=== PATIENT | male | born 1955 | race Caucasian/White ===

== ENCOUNTER → 2016-12-30 | Outpatient (CLI) | payer OTHER | LOC: RT 14:24 | DX: R55 Syncope and collapse (principal) ==

== ENCOUNTER 2017-03-31 18:33 | Emergency (ER) | payer OTHER ==
[~2017-03-31] VITALS: Ht 177.8 cm; Wt 68.5 kg
--- NOTE | 2017-03-31 18:57 | Emergency Room Report ---
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 N Clinical Suspician of Infection? N Mental Status: 2 - Mildly Altered Sepsis Risk:Possible Sepsis Risk Have you (or family members/close friends) recently traveled outside the [place]? N If Yes, where/when: Have you had exposure to infectious disease within the past month? TB? Other? Specify: Post operative edema acutely today; had RU lobectomy 03/13/17 Dr. Hand, and postoperatively experienced similar edema, which gradually resolved. He states he has pain, but declines offer of pain medications. Reports hx of SIDDHARTHA. 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 He has no fever or SOB; does not take anticoagulants but was on Lovenox in the hospital. He has no cardiac hx. No calf pain or claudication. Last meal was at eleven this morning. Has a hx of KENDALL, and has been r/o for TB (per consultation with Dr. Hand). ALLERGIES Coded Allergies: No Known Allergies (02/04/17) History Medical History General CAD? No Angina: No CA: No Hypertension? No Hyperlipidemia? No CHF? No DVT? No PE? No COPD? No Asthma? No Anemia? No GERD? No Gastric ulcers? No GI Bleed? No Hernia? No Thyroid Problems? No Hypothyroidism? No CVA? No Seizures? No Diabetes? No Renal Insuffiency? No End Stage Renal Disease? No UTI? No Stones? No BPH? No GB Disease: No Nephritic Syndrome? No Asplenia? No Hepatitis? No Sickle Cell Disease? No Arthritis? No Migraines? No Cataracts? No Glaucoma? No MRSA? No HIV? No TB? No Anxiety? No Depression? No Cancer? No More? Yes Additional hx: MAC LUNG DISEASE Immunization Hx DT/Tetanus Unknown Surgical Hx Previous Surgery?Y BILATERAL KNEE UMBILICAL HERNIA RIGHT UPPER LOBECTOMY Social History Smoking Hx Smoker: Former Smoker Tobacco: No Packs/day 1 1/2 - 2 Packs Alcohol Alcohol: No Review of Systems All Other Systems Reviewed and Negative Respiratory see HPI Physical Exam Vital Signs Vital Signs Date Time Temp Pulse Resp B/P Pulse O2 O2 Flow FiO2 Ox Delivery Rate 03/31 1916 126 20 92/65 98 2 03/31 1839 98.9 100 20 126/73 98 2 General Appearance normal appearance, WD/WN, no apparent distress Eye Exam - bilateral eye normal exam, bilateral eye PERRL, bilateral eye EOMI Neck normal inspection, non-tender, supple, full range of motion Respiratory Status Yes: trachea midline, chest symmetrical, non tender chest. No: respiratory distress (mild edema around dressing), tender on palpation, use of accessory muscles, pain on inspiration, pain on expiration, productive cough, non productive cough. Lung Sounds bilateral: normal breath sounds (significant edema posteriorlyR), lungs clear. right: decreased breath sounds. Cardiovascular normal exam, regular rate/rhythm, no peripheral edema, no gallop, no JVD, no murmur, no rub, normal peripheral pulses Gastrointestinal normal bowel sounds, normal exam, non tender, soft, no organomegaly, no pulsatile mass, no guarding, no rebound Extremities non-tender, normal range of motion, normal inspection, normal capillary refill, no pedal edema Strength 5 Upper Ext (L), 5 Upper Ext (R), 5 Lower Ext (L), 5 Lower Ext (R) Neurologic alert, normal exam, no motor/sensory deficits, oriented x 3 Glascow Coma Scale Glascow Coma Scale Response Value EYE response: 4 Spontaneously 4 MOTOR response: 6 OBEYS 6 VERBAL response: 5 Oriented & Converses 5 Total 15 Skin mild edema around operative site with sutures to right anterior chest in place; no erythema or drainage. No DINA. Medical Decision Making LABS/Meds/Orders Pt receiving controlled substance in ED? No Results/Orders Laboratory Tests 03/31/171926: Stool Occult Blood NEGATIVE 03/31/171900: POC Glucose 114 H 03/31/171834: Lactic Acid 1.6 03/31/171834: Sodium 134 L, Potassium 5.3 H, Chloride 102, Carbon Dioxide 27, BUN 20 H, Creatinine 1.2, Estimated Creat Clear 61, Estimated GFR (MDRD) 61, Glucose 153 H, Calcium 8.9, Total Bilirubin 0.3, AST 13 L, ALT 25, Alkaline Phosphatase 104 , Creatine Kinase 41, CK-MB (CK-2) Rel Index 1.2, CK and CKMB Interp < 0.5, Troponin I < 0.02, Total Protein 7.2, Albumin 2.8 L, Globulin 4.4 H, Albumin/ Globulin Ratio 0.6 L, WBC 23.7 *H, RBC 3.82 L, Hgb 11.5 L, Hct 35.4 L, MCV 92.7, RDW 13.5, Plt Count 664 H, MPV 7.5, Gran % 79.7, Gran # 18.9 H, Total Counted Pending, Lymphocytes % 13.0, Monocytes % 4.5, Eosinophils % 2.2, Basophils % 0.5, Neutrophils Pending, Lymphocytes (Manual) Pending, Lymphocytes # 3.1, Monocytes # 1.1 H, Eosinophils # 0.5 H, Basophils # 0.1, Platelet Estimate Pending, PUBS MCHC 32.3, MCH 30.0 Current Medication Orders Sig/Campbell Start time Last Medication Dose Route Stop Time Status Admin Sodium Chloride 10 ML PRN PRN 03/31 193 AC IV 04/01 1927 Levofloxacin/Dextrose 150 ML .STK-MED ONE 03/31 1922 DC IV Lactated Ringer's 1,000 ML .Q1H1M 03/31 1915 AC 03/31 IV 03/31 2015 192 Levofloxacin/Dextrose 150 ML ONCE ONE 03/31 1915 r 03/31 IV 03/31 2044 192 Sodium Chloride 1,000 ML .[id number] 03/31 1915 CAN IV 03/31 2314 Sodium Chloride 10 ML PRN PRN 03/31 1915 AC IV 04/01 1906 Sodium Chloride 10 ML PRN PRN 03/31 1915 AC IV 04/01 1908 Sodium Chloride 10 ML PRN PRN 03/31 1915 AC IV 04/01 1909 Sodium Chloride 1,000 ML .STK-MED ONE 03/31 1912 DC IV Lactated Ringer's 1,000 ML .STK-MED ONE 03/31 1908 DC IV Orders Procedure Date/time Status DIET-NOTHING BY MOUTH 04/01 B Active IV SALINE LOCK 03/31 1927 Active STOOL OCCULT BLOOD 03/31 1915 Complete IV SALINE LOCK 03/31 1910 Active CULTURE, BLOOD 03/31 1909 Active LACTIC ACID 03/[address] HEAD REQ 03/31 1906 Active ELECTROCARDIOGRAM REQUEST 03/31 1904 Active FINGERSTICK BLOOD SUGAR 03/[address] CHEST W/O CONTRAST 03/[address] CHEST SCAN REQ 03/31 1851 Active ELECTROCARDIOGRAM REQUEST 03/31 1839 Active CHEST-PORTABLE 03/31 1839 Active COMPLETE METABOLIC PANEL 03/31 1839 Complete CBC WITH AUTO DIFF 03/31 1839 Active CARDIAC ENZYMES 03/31 1839 Complete DIFFERENTIAL-WBC 03/31 1835 Active CM/EKG CM/EKG 1 EKG rate, NSR, rhythm, no evid. of ischemic chgs, no ectopy, normal QRS, normal CA, normal EKG (NSR 93) CM/EKG 2 EKG rate, NSR, rhythm, no evid. of ischemic chgs, no ectopy, normal QRS, normal CA, normal EKG (EKG number 2 no change; NSR94) Consult MD Physician Consult Time Called 1933 Reason Pt. Condition, Transfer to facility Comments Dr. Hand accepting;transfer to ED. Patient alert, SBP in the low 100's; neurologically intact. He is afebrile. Dr. Hand reports hx KENDALL, states edema more c/w postoperative seroma but with hypotension and elevated CBC agrees with transfer. CT scan held due to immediate transfer and orthostatic hypotension. ABX initiated has 2IV's with LR bolused. Pulmonary Embolism Score WELL'S CRITERIA FOR PE WELL'S CRITERIA FOR PE Response Value Clinical signs/symptoms of DVT NO 0 PE is #1 diagnosis or equally likely NO 0 Heart rate is > 100 NO 0 Immobile at least 3 days, or surgery in past 4 wks NO 0 Previously, obj. diagnosed PE or DVT NO 0 Hemoptysis NO 0 Malignancy w/Rx within 6mo, or palliative NO 0 Total 0 Progress ED Progress Notes 1 Date 03/31/17 Time 190 Comment Patient brought back from [facility] by radiology techs as he had an episode of change in mental status, eyes rolled back, and he was "out" with rigid limbs. This lasted about ten seconds and he is now alert. He was in a wheelchair at the time. FSBS 114 and he was in STach on the monitor, and had been from supine to sitting position just moments prior to this event. Will give IVF and keep on monitor. He is neurologically intact currently and no chest pain or SOB. He is pale. ED Progress Notes 2 Date 03/31/17 Time 191 Comment Patient sat up and had hypotensive episode with SBP in the 60's; placed supine and SBP in the 90's; LR initiated due to 23.7 WBC. Will obtain CXR and consult [facility] for transfer. Patient alert. HR 94 now. ED Progress Notes 3 Date 03/31/17 Time 1950 Comment [facility] called back w/ room assignment; instructed to transfer to that bed and not the ED; this information was given to EMS prior to transfer. Departure Departure Time of Disposition 1932 Disposition DC/XFER from ER to [facility] Clinical Impression Primary Impression: Sepsis Qualifiers: Sepsis type: sepsis due to unspecified organism Qualified Code: A41.9 - Sepsis, unspecified organism Secondary Impressions: Postoperative seroma Qualifiers: Surgical complication system/body Area: respiratory system Procedure type: respiratory system Qualified Code: J95.862 - Postprocedural seroma of a respiratory system organ or structure following a respiratory system procedure Condition STABLE ED Critical Care Critical Care Yes Time spent < 30 min Vital system(s) involved: Shock (Septic) I was present at bedside for Coordinating pt's care, Interpreting EKGs/Strips , During my initial exam, Reviewing lab results, Discussing pt condition, For re -examinations, Examining radiographs at 1952
[2017-03-31 19:04] LABS: LYMPH # 3.1 K/mm3 (0.7-4.5)
[2017-03-31 19:10] LABS: HEMOGLOBIN 11.5 g/dL (14.1-18.0)
[2017-03-31 19:24] LABS: BUN 20 mg/dL (7-18); GFR (ESTIMATED) 61 ML/MIN (>60)
[2017-03-31 19:32] LABS: STOOL OCCULT BLOOD NEGATIVE (NEG)
[2017-03-31 20:05] LABS: NEUTROPHILS 90 % (42-76)
[2017-03-31 20:16] VITALS: BP 117/64
--- NOTE | 2017-03-31 23:44 | RADIOLOGY REPORT PS360 ---
CHEST-PORTABLE HISTORY: POSSIBLE PNEUMO ORDERING PHYSICIAN: Christie Mayo MD PATIENT AGE: 61 years COMPARISON: None available FINDINGS: There are no previous studies available for comparison. There are postsurgical changes present with multiple skin clips along the right hemithorax. A bone plate is present over the right fifth rib laterally and the right sixth rib posteriorly with missing segment of the medial aspect of the right sixth rib. There is prominent right apical pleural thickening. Soft tissue gas is present overlying the right scapular region. Mediastinum is prominent. Right hilum is prominent with volume loss on the right and sutures in the right perihilar region and right lower lobe with atelectasis or fibrosis in the right lung base. Correlation with old films are needed. The left lung is clear. IMPRESSION: Abnormal chest with postsurgical changes as described above, right apical pleural thickening and prominent mediastinum and right hilum along with atelectatic or fibrotic change in the right lung base and soft tissue gas overlying the right scapula. Correlation with old films needed.
--- OUTSIDE RECORDS SUMMARY | 2017-04-04 06:58 | External Medical Summary Rpt | CCD ---
Demographics Home Phone Preferred Language Bulgarian Marital Status Unknown Gnosticism Affiliation Unknown Race Unknown Ethnic Group Unknown Author Author , RADHA GARCIA Address Unknown Phone [email or web address] Immunization Name Date Rout CVX Reac Dose Comm Prov Is Faci e tion ent ider Refu lity Give sed n Tdap 07-1 Intr 115 999 Hist EWA No EWA , 6-20 amus oric LO LO Adso 16 cula al rbed r Info rmat ion - Sour ce Unsp ecif ied
--- OUTSIDE RECORDS SUMMARY | 2017-04-04 06:58 | External Medical Summary Rpt | CCD ---
Author Author , RADHA GARCIA Address Unknown Phone [email or web address] Purpose Continuity of Care Document - 03-19-2017 through 2016 Problems Code Diagnosis DOS Provider Status A31.0 Pulmonary mycobacteri al infection A31.9 Mycobacteri al infection, unspecified D72.829 Elevated white blood cell count, unspecified F17.210 Nicotine dependence, cigarettes, uncomplicat ed J18.1 Lobar pneumonia, unspecified organism J18.9 Pneumonia, unspecified organism J43.2 Centrilobul ar emphysema J69.0 Pneumonitis due to inhalation of food and vomit R05 Cough R06.02 Shortness of breath R59.0 Localized enlarged lymph nodes R61 Generalized hyperhidros is R63.4 Abnormal weight loss R91.1 Solitary pulmonary nodule R91.8 Other nonspecific abnormal finding of lung field R93.8 Abnormal findings on diagnostic imaging of other specified body structures Results Labs Lab Lab Date Result Refere Interp Status Commen Order Detail nces retati t Range on Phosphate SerPl-mCnc (03-27-2017 03:14) Phospha 4.2 2.5-4.5 complet te 017 mg/dL ed SerPl-m 03:14 Cnc Magnesium SerPl-mCnc (03-27-2017 03:14) Magnesi 2 2.4 1.9-2.4 complet um 017 mg/dL ed SerPl-m 03:14 Cnc Phosphate SerPl-mCnc (03-26-2017 03:43) Phospha 4.5 2.5-4.5 complet te 017 mg/dL ed SerPl-m 03:43 Cnc Magnesium SerPl-mCnc (03-26-2017 03:43) Magnesi 2.2 1.9-2.4 complet um 017 mg/dL ed SerPl-m 03:43 Cnc Ca-I SerPl ISE-sCnc (03-26-2017 03:43) Ca-I 1005-2 4.7 4.6-5.1 complet SerPl 017 mg/dL ed ISE-sCn 03:43 c Phosphate SerPl-mCnc (03-25-2017 00:49) Phospha 4.0 2.5-4.5 complet te 017 mg/dL ed SerPl-m 00:49 Cnc Magnesium SerPl-mCnc (03-25-2017 00:49) Magnesi 2.1 1.9-2.4 complet um 017 mg/dL ed SerPl-m 00:49 Cnc Ca-I SerPl ISE-sCnc (03-25-2017 00:49) Ca-I 4.4 4.6-5.1 complet SerPl 017 mg/dL ed ISE-sCn 00:49 c Phosphate SerPl-mCnc (03-24-2017 03:16) Phospha TCON 2.5-4.5 complet te 017 Multipl ed SerPl-m 03:16 e SCM Cnc orders. Tests consoli dated. L mg/dL Magnesium SerPl-mCnc (03-24-2017 03:16) Magnesi TCON 1.9-2.4 complet um 017 Multipl ed SerPl-m 03:16 e SCM Cnc orders. Tests consoli dated. L mg/dL Vancomycin SerPl-mCnc (03-24-2017 03:16) Vancomy 20.5 0-40.0 complet korin 017 ug/mL ed SerPl-m 03:16 Cnc Phosphate SerPl-mCnc (03-24-2017 03:16) Phospha 4.0 2.5-4.5 complet te 017 mg/dL ed SerPl-m 03:16 Cnc Magnesium SerPl-mCnc (03-24-2017 03:16) Magnesi 2.2 1.9-2.4 complet um 017 mg/dL ed SerPl-m 03:16 Cnc Ca-I SerPl ISE-sCnc (03-24-2017 03:16) Ca-I 4.6 4.6-5.1 complet SerPl 017 mg/dL ed ISE-sCn 03:16 c Vancomycin SerPl-mCnc (03-23-2017 23:23) Vancomy 11.5 0-40.0 complet korin 017 ug/mL ed SerPl-m 23:23 Cnc MDRO Wnd (03-23-2017 22:17) Bacteri [id number] complet a XXX 017 06 No ed Anaerob 22:17 growth e+Aerob (qualif e Cult ier value) SCT NG1 NO GROWTH DAY 1. L CC XXX NOTAP complet VC-aCnc 017 NOT ed 22:17 APPLICA BLE L Phosphate SerPl-mCnc (03-23-2017 02:10) Phospha 3.1 2.5-4.5 complet te 017 mg/dL ed SerPl-m 02:10 Cnc Ca-I SerPl ISE-sCnc (03-23-2017 02:10) Ca-I 4.7 4.6-5.1 complet SerPl 017 mg/dL ed ISE-sCn 02:10 c Magnesium SerPl-mCnc (03-23-2017 02:10) Magnesi 2.1 1.9-2.4 complet um 017 mg/dL ed SerPl-m 02:10 Cnc Phosphate SerPl-mCnc (03-22-2017 03:34) Phospha 2.3 2.5-4.5 complet te 017 mg/dL ed SerPl-m 03:34 Cnc Magnesium SerPl-mCnc (03-22-2017 03:34) Magnesi 2.1 1.9-2.4 complet um 017 mg/dL ed SerPl-m 03:34 Cnc Bacteria XXX Resp Cult (03-21-2017 17:02) Bacteri C48 ... complet a XXX 017 IF ed Anaerob 17:02 WORKUP e+Aerob REQUIRE e Cult D, CALL BACT ([id number]) WITHIN 48 HRS. L Bacteri [id number] complet a XXX 017 8 Gram ed Anaerob 17:02 negativ e+Aerob e e Cult bacillu s (organi sm) SCT GNR GRAM NEGATIV E SAYDA L CC XXX MGRO complet VC-aCnc 017 MODERAT ed 17:02 E GROWTH L Magnesium SerPl-mCnc (03-21-2017 02:12) Magnesi 2.1 1.9-2.4 complet um 017 mg/dL ed SerPl-m 02:12 Cnc Phosphate SerPl-mCnc (03-21-2017 02:12) Phospha 1.8 2.5-4.5 complet te 017 mg/dL ed SerPl-m 02:12 Cnc Phosphate SerPl-mCnc (03-20-2017 02:24) Phospha 2.8 2.5-4.5 complet te 017 mg/dL ed SerPl-m 02:24 Cnc Magnesium SerPl-mCnc (03-20-2017 02:24) Magnesi 2.0 1.9-2.4 complet um 017 mg/dL ed SerPl-m 02:24 Cnc MDRO Wnd (03-19-2017 15:35) Bacteri [id number] complet a XXX 017 06 No ed Anaerob 15:35 growth e+Aerob (qualif e Cult ier value) SCT NG1 NO GROWTH DAY 1. L CC XXX NOTAP complet VC-aCnc 017 NOT ed 15:35 APPLICA BLE L Phosphate SerPl-mCnc (03-19-2017 14:09) Phospha 4.3 2.5-4.5 complet te 017 mg/dL ed SerPl-m 14:09 Cnc Magnesium SerPl-mCnc (03-19-2017 14:09) Magnesi 2.0 1.9-2.4 complet um 017 mg/dL ed SerPl-m 14:09 Cnc Chloride Bld-sCnc (03-19-2017 11:38) Chlorid 109 101-108 complet e 017 mmol/L ed Bld-sCn 11:38 c Bacteria Wnd Cult (03-19-2017 11:11) Bacteri [id number] complet a XXX 017 06 No ed Anaerob 11:11 growth e+Aerob (qualif e Cult ier value) SCT NG4 NO GROWTH DAY 4. L CC XXX NOTAP complet VC-aCnc 017 NOT ed 11:11 APPLICA BLE L Bacteria XXX Anaerobe Cult (03-19-2017 11:11) Bacteri [id number] complet a XXX 017 06 No ed Anaerob 11:11 growth e+Aerob (qualif e Cult ier value) SCT NG4 NO GROWTH DAY 4. L Bacteria XXX Anaerobe Cult (03-19-2017 10:56) Bacteri [id number] complet a XXX 017 06 No ed Anaerob 10:56 growth e+Aerob (qualif e Cult ier value) SCT NG4 NO GROWTH DAY 4. L Bacteria Tiss Cult (03-19-2017 10:56) Bacteri [id number] complet a XXX 017 06 No ed Anaerob 10:56 growth e+Aerob (qualif e Cult ier value) SCT NG4 NO GROWTH DAY 4. L CC XXX NOTAP complet VC-aCnc 017 NOT ed 10:56 APPLICA BLE L Bacteria XXX Anaerobe Cult (03-19-2017 09:58) Bacteri 2 C48 ... complet a XXX 017 IF ed Anaerob 09:58 WORKUP e+Aerob REQUIRE e Cult D, CALL BACT ([id number]) WITHIN 48 HRS. L Bacteri [id number] complet a XXX 017 08 ed Anaerob 09:58 Staphyl e+Aerob ococcus e Cult , coagula se negativ e (organi sm) SCT SCN COAGULA SE NEGATIV E STAPHYL OCOCCUS SPECIES L Bacteria Tiss Cult (03-19-2017 09:58) Bacteri [id number] complet a XXX 017 06 No ed Anaerob 09:58 growth e+Aerob (qualif e Cult ier value) SCT NG4 NO GROWTH DAY 4. L CC XXX NOTAP complet VC-aCnc 017 NOT ed 09:58 APPLICA BLE L Chloride Bld-sCnc (03-19-2017 09:10) Chlorid 110 101-108 complet e 017 mmol/L ed Bld-sCn 09:10 c
--- OUTSIDE RECORDS SUMMARY | 2017-04-04 06:58 | External Medical Summary Rpt | CCD ---
Author Author [employer] Organization [employer] Address Unknown Phone Unavailable Purpose Continuity of Care Document - through 2016
--- OUTSIDE RECORDS SUMMARY | 2017-04-04 06:58 | External Medical Summary Rpt ---
Author Author RADHA Dela Cruz, [employer] Organization [employer] Address Unknown Phone Unavailable
--- OUTSIDE RECORDS SUMMARY | 2017-04-04 06:58 | External Medical Summary Rpt | CCD ---
Author Author , RADHA GARCIA Address Unknown Phone [email or web address] Purpose Continuity of Care Document - 03-19-2017 [...] 23:23 Cnc MDRO Wnd (03-23-2017 22:17) Bacteri [id number] complet a XXX 017 06 No ed [...] e+Aerob REQUIRE e Cult D, CALL BACT ([id number]) WITHIN 48 HRS. L Bacteri [id number] complet a XXX 017 8 Gram ed [...] 02:24 Cnc MDRO Wnd (03-19-2017 15:35) Bacteri [id number] complet a XXX 017 06 No ed [...] c Bacteria Wnd Cult (03-19-2017 11:11) Bacteri [id number] complet a XXX 017 06 No ed Anaerob 11:11 growth e+Aerob (qualif e Cult ier value) SCT NG4 NO GROWTH DAY 4. L CC XXX NOTAP complet VC-aCnc 017 NOT ed 11:11 APPLICA BLE L Bacteria XXX Anaerobe Cult (03-19-2017 11:11) Bacteri [id number] complet a XXX 017 06 No ed Anaerob 11:11 growth e+Aerob (qualif e Cult ier value) SCT NG4 NO GROWTH DAY 4. L Bacteria XXX Anaerobe Cult (03-19-2017 10:56) Bacteri [id number] complet a XXX 017 06 No ed Anaerob 10:56 growth e+Aerob (qualif e Cult ier value) SCT NG4 NO GROWTH DAY 4. L Bacteria Tiss Cult (03-19-2017 10:56) Bacteri [id number] complet a XXX 017 06 No ed Anaerob 10:56 growth e+Aerob (qualif e Cult ier value) SCT NG4 NO GROWTH DAY 4. L CC XXX NOTAP complet VC-aCnc 017 NOT ed 10:56 APPLICA BLE L Bacteria XXX Anaerobe Cult (03-19-2017 09:58) Bacteri 2 C48 ... complet a XXX 017 IF ed Anaerob 09:58 WORKUP e+Aerob REQUIRE e Cult D, CALL BACT ([id number]) WITHIN 48 HRS. L Bacteri [id number] complet a XXX 017 08 ed Anaerob 09:58 Staphyl e+Aerob ococcus e Cult , coagula se negativ e (organi sm) SCT SCN COAGULA SE NEGATIV E STAPHYL OCOCCUS SPECIES L Bacteria Tiss Cult (03-19-2017 09:58) Bacteri [id number] complet a XXX 017 06 No ed Anaerob 09:58 growth e+Aerob (qualif e Cult ier value) SCT NG4 NO GROWTH DAY 4. L CC XXX NOTAP complet VC-aCnc 017 NOT ed 09:58 APPLICA BLE L Chloride Bld-sCnc (03-19-2017 09:10) Chlorid 110 101-108 complet e 017 mmol/L ed Bld-sCn 09:10 c
--- OUTSIDE RECORDS SUMMARY | 2017-04-04 06:58 | External Medical Summary Rpt | CCD ---
Demographics Home Phone Preferred Language Mongolian Marital Status Unknown Jehovah'S Witness Affiliation Unknown Race Unknown Ethnic Group Unknown Author Author , RADHA GARCIA Address Unknown Phone [email or web address] Immunization Name Date Rout CVX Reac Dose Comm Prov Is Faci e tion ent ider Refu lity Give sed n Tdap 07-1 Intr 115 999 Hist EWA No EWA , 6-20 amus oric LO LO Adso 16 cula al rbed r Info rmat ion - Sour ce Unsp ecif ied
== END 2017-03-31 20:18 | disposition short-term general hospital (02) ==
LOC: ER 18:33
PROVIDERS: Emergency Medicine
DX: A41.9 Sepsis, unspecified organism (principal); J95.862 Postprocedural seroma of a respiratory system organ or structure following a respiratory system procedure; Z87.891 Personal history of nicotine dependence; I95.9 Hypotension, unspecified
CPT/HCPCS: G0328

== ENCOUNTER 2017-05-26 15:18 | Observation (INO) | payer OTHER ==
[~2017-05-26] VITALS: Ht 177.8 cm; Wt 71.9 kg
[2017-05-26 15:21] VITALS: BP 189/98
--- NOTE | 2017-05-26 15:30 | Emergency Room Report ---
See Addendum History of Present Illness Time Seen by 1530 Presenting Problem in Triage Pt arrived:Walked Presenting Problem:PAIN IN RIGHT SIDE OF CHEST, PLUERAL AREA. INCREASED WORK OF BREATHING. HX OF PULMECTOMY ON RIGHT SIDE. 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 N Clinical Suspician of Infection? N Mental Status: 1 - Regular (Normal Baseline) Sepsis Risk:Low Sepsis Risk Have you (or family members/close friends) recently traveled outside the [place]? N If Yes, where/when: Have you had exposure to infectious disease within the past month? TB? Other? Specify: Pleuritic chest pain and night sweats over the last few days, pt of Dr. Wong, pulmonology, due to histo in the past with RULobectomy. Has no cardiac hx, quit smoking in February,. No calf pain, no sputum, no flu sx, no fever, no chills. No palpitations or syncope. No hemoptysis. ALLERGIES Coded Allergies: No Known Allergies (02/04/17) History Medical History General CAD? No Angina: No GA: No Hypertension? No Hyperlipidemia? No CHF? No DVT? No PE? No COPD? No Asthma? No Anemia? No GERD? No Gastric ulcers? No GI Bleed? No Hernia? No Thyroid Problems? No Hypothyroidism? No CVA? No Seizures? No Diabetes? No Renal Insuffiency? No End Stage Renal Disease? No UTI? No Stones? No BPH? No GB Disease: No Nephritic Syndrome? No Asplenia? No Hepatitis? No Sickle Cell Disease? No Arthritis? No Migraines? No Cataracts? No Glaucoma? No MRSA? No HIV? No TB? No Anxiety? No Depression? No Cancer? No More? Yes Additional hx: MAC LUNG DISEASE Immunization Hx DT/Tetanus Unknown Surgical Hx Previous Surgery?Y BILATERAL KNEE UMBILICAL HERNIA RIGHT UPPER LOBECTOMY Social History Smoking Hx Smoker: Former Smoker Tobacco: No Type Cigarettes Packs/day 1 1/2 - 2 Packs Alcohol Alcohol: No Review of Systems All Other Systems Reviewed and Negative Constitutional see HPI Respiratory see HPI Cardiovascular see HPI Physical Exam Vital Signs Vital Signs Date Time Temp Pulse Resp B/P Pulse O2 O2 Flow FiO2 Ox Delivery Rate 05/26 1652 68 16 157/97 96 05/26 1521 98.4 68 20 189/98 96 General Appearance normal appearance, WD/WN, no apparent distress Eye Exam - bilateral eye normal exam, bilateral eye PERRL, bilateral eye EOMI Neck normal inspection, non-tender, supple, full range of motion Respiratory Status Yes: trachea midline, chest symmetrical, non tender chest. No: respiratory distress, tender on palpation, use of accessory muscles, pain on inspiration, pain on expiration, productive cough, non productive cough. Lung Sounds bilateral: normal breath sounds, lungs clear. right: decreased breath sounds ( hx lobectomy on R). Cardiovascular normal exam, regular rate/rhythm, no peripheral edema, no gallop, no JVD, no murmur, no rub, normal peripheral pulses Gastrointestinal normal bowel sounds, normal exam, non tender, soft, no organomegaly, no pulsatile mass, no guarding, no rebound Extremities non-tender, normal range of motion, normal inspection, normal capillary refill, no calf tenderness, no pedal edema Strength 5 Upper Ext (L), 5 Upper Ext (R), 5 Lower Ext (L), 5 Lower Ext (R) Neurologic alert, normal exam, no motor/sensory deficits, oriented x 3 Glascow Coma Scale Glascow Coma Scale Response Value EYE response: 4 Spontaneously 4 MOTOR response: 6 OBEYS 6 VERBAL response: 5 Oriented & Converses 5 Total 15 Skin intact, normal color, warm/dry Medical Decision Making LABS/Meds/Orders Pt receiving controlled substance in ED? No Results/Orders Laboratory Tests 05/26/17 1615: Lactic Acid 0.9 05/26/17 1530: Sodium 144, Potassium 4.0, Chloride 108 H, Carbon Dioxide 30, BUN 16, Creatinine 1.1, Estimated Creat Clear 73, Estimated GFR (MDRD) 68, Glucose 112 H, Calcium 8.8, Total Bilirubin 0.1 L, AST 13 L, ALT 13, Alkaline Phosphatase 69, Creatine Kinase 66, CK-MB (CK-2) Rel Index 0.8, CK and CKMB Interp < 0.5, Troponin I < 0.02, Total Protein 7.1, Albumin 3.3 L, Globulin 3.8 H, Albumin/ Globulin Ratio 0.9 L, WBC 7.9, RBC 4.05 L, Hgb 11.9 L, Hct 37.2 L, MCV 91.8, RDW 13.6, Plt Count 300, MPV 7.5, Gran % 63.0, Gran # 5.0, Lymphocytes % 24.3, Monocytes % 7.3, Eosinophils % 4.7, Basophils % 0.7, Lymphocytes # 1.9, Monocytes # 0.6, Eosinophils # 0.4, Basophils # 0.1, PUBS MCHC 31.9, MCH 29.3 Current Medication Orders Sig/Campbell Start time Last Medication Dose Route Stop Time Status Admin Iopamidol 60 ML ONCE ONE 05/26 1645 UNV 05/26 IV 05/26 1646 1635 Sodium Chloride 20 ML ONCE ONE 05/26 1645 UNV 05/26 IV 05/26 1646 1635 Sodium Chloride 20 ML ONCE ONE 05/26 1645 UNV 05/26 IV 05/26 1646 1636 Sodium Chloride 10 ML PRN PRN 05/26 1645 UNV 05/26 IV 05/26 1806 1637 Sodium Chloride 10 ML PRN PRN 05/26 1530 AC IV 05/27 1530 Orders Procedure Date/time Status DIET-NOTHING BY MOUTH 05/26 D Active CULTURE, BLOOD 05/26 1613 Active LACTIC ACID 05/26 1613 Complete ELECTROCARDIOGRAM REQUEST 05/[address] CHEST W/PE PROTOCOL REQ 05/26 1530 Complete IV SALINE LOCK 05/26 1530 Active CBC WITH AUTO DIFF 05/26 1530 Complete CARDIAC ENZYMES 05/26 1530 Complete CHEM 12 PROFILE 05/26 1530 Complete 12 LEAD EKG-BELLA (INITIAL) 05/26 UNK Active CM/EKG CM/EKG EKG rate, NSR, rhythm, no evid. of ischemic chgs, no ectopy, normal QRS, normal MO, normal EKG (NSR 63) XRAY/CT/US XRAY/CT/US CT chest CT interpretation by reviewed by me (report reviewed) Time results known: 1729 CT Results abnormal, soft tissue density and fluid, cannot r/o neoplasm per report; results d/w pt and referred to his finish filer Progress ED Progress Notes Date 05/26/17 Time 1730 Comment No PE on CT but has possibility of neoplasm: will f/u with his finish filer next week and already has an appointment; he may also f/u with his PCP in the meantime. He has no discomfort, does not need anything for pain, is not in any resp distress and is stable at d/c. Departure Departure Time of Disposition 1730 Disposition DC Home or Self Care(routine) Clinical Impression Primary Impression: Pleuritic chest pain Secondary Impressions: Abnormal CT scan, chest Condition STABLE Referrals MADELYN FENG APRN (Family) Patient Instructions DI for Pleurisy Additional Instructions See Dr. Wong next week for your scheduled appointment; see your PCP Madelyn in one to three days as well; go to closest ER if any concerns or worsening symptoms. Discharge Counseling Counseled pt/family regarding diagnosis, test results, R/B of controlled subst., home care, follow up needs ED Critical Care Critical Care No at [id number]
[2017-05-26 15:43] LABS: HEMOGLOBIN 11.9 g/dL (14.1-18.0); LYMPH # 1.9 K/mm3 (0.7-4.5); LYMPH % 24.3 % (10-50)
--- OUTSIDE RECORDS SUMMARY | 2017-05-26 15:51 | External Medical Summary Rpt | Continuity of Care Document ---
Author Author Organization Address Unknown Phone Unavailable Care Team Providers Care Dye Boarding Machine Operator Name Role Phone , Unavailable Unavailable EMS Current Medications Section EMS Allergies and Adverse Reactions EMS Past Medical History Medications Administered Section EMS Procedures Performed EMS Vital Signs EMS Patient Care Report Narrative 62 y/o w/m who had upper R lobe of lung removed by [facility] 9 days prior just released 4 days ago now with severe pain R upper chest and posterior thorax with tightness in that area. Pt states this tightness makes it difficult to breath and makes his R arm tingle. Upon exam pt with obvious free air in upper chest with swelling and tightness. Pt request to go to but after discussion agrees to [facility]. Pt assisted to cot. Once en route pain decreased with repeat dose of fentanyl. No other changes. Pt states tolerating pain and requires no further intervention. Pt not SOB and v/s WNL. Report called 30 mcg fentanyl wasted with Dominga RN as witness.
--- OUTSIDE RECORDS SUMMARY | 2017-05-26 15:51 | External Medical Summary Rpt | Continuity of Care Document ---
Author Author Organization Address Unknown Phone Unavailable Care Team Providers Care Mill Tender Second Operator Name Role Phone , Unavailable Unavailable [...] go to but after discussion agrees to [facility]. Pt assisted to cot. Once en route pain decreased with repeat dose of fentanyl. No other changes. Pt states tolerating pain and requires no further intervention. Pt not SOB and v/s WNL. Report called 30 mcg fentanyl wasted with Dominga RN as witness.
--- OUTSIDE RECORDS SUMMARY | 2017-05-26 15:51 | External Medical Summary Rpt | Continuity of Care Document ---
Author Author Organization Address Unknown Phone Unavailable Care Team Providers Care Fire Protection Specialist Name Role Phone , Unavailable Unavailable EMS [...] go to but after discussion agrees to [facility]. Pt assisted to cot. Once en route pain decreased with repeat dose of fentanyl. No other changes. Pt states tolerating pain and requires no further intervention. Pt not SOB and v/s WNL. Report called 30 mcg fentanyl wasted with Dominga RN as witness.
--- OUTSIDE RECORDS SUMMARY | 2017-05-26 15:51 | External Medical Summary Rpt | Continuity of Care Document ---
Author Author Organization Address Unknown Phone Unavailable Care Team Providers Care Compliance Testing Analyst Name Role Phone , Unavailable Unavailable EMS [...] go to but after discussion agrees to [facility]. Pt assisted to cot. Once en route pain decreased with repeat dose of fentanyl. No other changes. Pt states tolerating pain and requires no further intervention. Pt not SOB and v/s WNL. Report called 30 mcg fentanyl wasted with Dominga RN as witness.
--- OUTSIDE RECORDS SUMMARY | 2017-05-26 15:51 | External Medical Summary Rpt | Continuity of Care Document ---
Author Author Organization Address Unknown Phone Unavailable Care Team Providers Care Electrical Engineering Teacher Name Role Phone , Unavailable Unavailable EMS [...] go to but after discussion agrees to [facility]. Pt assisted to cot. Once en route pain decreased with repeat dose of fentanyl. No other changes. Pt states tolerating pain and requires no further intervention. Pt not SOB and v/s WNL. Report called 30 mcg fentanyl wasted with Dominga RN as witness.
--- OUTSIDE RECORDS SUMMARY | 2017-05-26 15:51 | External Medical Summary Rpt | Continuity of Care Document ---
Author Author Organization Address Unknown Phone Unavailable Care Team Providers Care Social Worker Aide Name Role Phone , Unavailable Unavailable EMS [...] go to but after discussion agrees to [facility]. Pt assisted to cot. Once en route pain decreased with repeat dose of fentanyl. No other changes. Pt states tolerating pain and requires no further intervention. Pt not SOB and v/s WNL. Report called 30 mcg fentanyl wasted with Dominga RN as witness.
--- OUTSIDE RECORDS SUMMARY | 2017-05-26 15:52 | External Medical Summary Rpt | Continuity of Care Document ---
Author Author Organization Address Unknown Phone Unavailable Care Team Providers Care Computer Support Specialist Name Role Phone , Unavailable Unavailable [...] go to but after discussion agrees to [facility]. Pt assisted to cot. Once en route pain decreased with repeat dose of fentanyl. No other changes. Pt states tolerating pain and requires no further intervention. Pt not SOB and v/s WNL. Report called 30 mcg fentanyl wasted with Dominga RN as witness.
--- OUTSIDE RECORDS SUMMARY | 2017-05-26 15:52 | External Medical Summary Rpt | Continuity of Care Document ---
Author Author Organization Address Unknown Phone Unavailable Care Team Providers Care Fibrous Plasterer Name Role Phone , Unavailable Unavailable EMS [...] go to but after discussion agrees to [facility]. Pt assisted to cot. Once en route pain decreased with repeat dose of fentanyl. No other changes. Pt states tolerating pain and requires no further intervention. Pt not SOB and v/s WNL. Report called 30 mcg fentanyl wasted with Dominga RN as witness.
--- OUTSIDE RECORDS SUMMARY | 2017-05-26 15:52 | External Medical Summary Rpt | Continuity of Care Document ---
Author Author Organization Address Unknown Phone Unavailable Care Team Providers Care Dike Supervisor Name Role Phone , Unavailable Unavailable EMS [...] go to but after discussion agrees to [facility]. Pt assisted to cot. Once en route pain decreased with repeat dose of fentanyl. No other changes. Pt states tolerating pain and requires no further intervention. Pt not SOB and v/s WNL. Report called 30 mcg fentanyl wasted with Dominga RN as witness.
--- OUTSIDE RECORDS SUMMARY | 2017-05-26 15:52 | External Medical Summary Rpt | Continuity of Care Document ---
Author Author Organization Address Unknown Phone Unavailable Care Team Providers Care Heat And Vent Aircraft Mechanic Name Role Phone , Unavailable Unavailable EMS [...] go to but after discussion agrees to [facility]. Pt assisted to cot. Once en route pain decreased with repeat dose of fentanyl. No other changes. Pt states tolerating pain and requires no further intervention. Pt not SOB and v/s WNL. Report called 30 mcg fentanyl wasted with Dominga RN as witness.
--- OUTSIDE RECORDS SUMMARY | 2017-05-26 15:54 | External Medical Summary Rpt | CCD ---
Demographics Home Phone Preferred Language Stateless Marital Status Unknown Taoism Affiliation Unknown Race Unknown Ethnic Group Unknown Author Author , RADHA GARCIA Address Unknown Phone [email or web address] Immunization Name Date Rout CVX Reac Dose Comm Prov Is Faci e tion ent ider Refu lity Give sed n Tdap 07-1 Intr 115 999 Hist EWA No WEA , 6-20 amus oric LO LO Adso 16 cula al rbed r Info rmat ion - Sour ce Unsp ecif ied
--- OUTSIDE RECORDS SUMMARY | 2017-05-26 15:54 | External Medical Summary Rpt | CCD ---
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 E87.2 Acidosis 04-01-2017 E87.6 Hypokalemia 04-01-2017 F17.210 Nicotine 04-01-2017 dependence, cigarettes, uncomplicat ed G89.18 Other acute 04-01-2017 postprocedu ral pain H57.02 Anisocoria 04-01-2017 I10 Essential 04-01-2017 (primary) hypertensio n J18.9 Pneumonia, 04-01-2017 unspecified organism J93.82 Other air 04-01-2017 leak J93.9 Pneumothora 04-01-2017 x, unspecified S14.3XXA Injury of 04-01-2017 brachial plexus, initial encounter T17.990A Other 04-01-2017 foreign object in respiratory tract, part unspecified in causing asphyxiatio n, initial encounter Z68.23 Body mass 04-01-2017 index (BMI) 23.0-23.9, adult 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, unspecified A31.9 Mycobacteri al infection, unspecified A41.9 SEPSIS, UNSPECIFIED ORGANISM D72.829 Elevated white blood cell count, unspecified [id number] J18.1 Lobar pneumonia, unspecified organism J43.2 Centrilobul ar emphysema J69.0 [...] Order Detail nces retati t Range on Vancomycin Peak SerPl-mCnc (04-03-2017 12:07) Vancomy 04-03- 30.8 20.0-40 complet korin 017 ug/mL .0 ed Peak 12:07 SerPl-m Cnc Vancomycin Trough SerPl-mCnc (04-03-2017 07:59) Vancomy 04-03- 17.9 10.0-20 complet korin 017 ug/mL .0 ed Trough 07:59 SerPl-m Cnc Ca-I SerPl ISE-sCnc (04-03-2017 03:21) Ca-I 4.5 4.6-5.1 complet SerPl 017 mg/dL ed ISE-sCn 03:21 c Magnesium SerPl-mCnc (04-03-2017 03:21) Magnesi 2.1 1.9-2.4 complet um 017 mg/dL ed SerPl-m 03:21 Cnc Phosphate SerPl-mCnc (04-03-2017 03:21) Phospha 3.6 2.5-4.5 complet te 017 mg/dL ed SerPl-m 03:21 Cnc Phosphate SerPl-mCnc (04-02-2017 03:49) Phospha 04-02- 4.0 2.5-4.5 complet te 017 mg/dL ed SerPl-m 03:49 Cnc Magnesium SerPl-mCnc (04-02-2017 03:49) Magnesi 2.1 1.9-2.4 complet um 017 mg/dL ed SerPl-m 03:49 Cnc Vancomycin SerPl-mCnc (04-01-2017 17:46) Vancomy 04-01- 7.8 0-40.0 complet korin 017 ug/mL ed SerPl-m 17:46 Cnc Phosphate SerPl-mCnc (04-01-2017 04:17) Phospha 04-01-2 3.7 2.5-4.5 complet te 017 mg/dL ed SerPl-m 04:17 Cnc Magnesium SerPl-mCnc (04-01-2017 04:17) Magnesi 04-01-2 2.0 1.9-2.4 complet um 017 mg/dL ed SerPl-m 04:17 Cnc Vancomycin SerPl-mCnc (04-01-2017 04:17) Vancomy 21.1 0-40.0 complet korin 017 ug/mL ed SerPl-m 04:17 Cnc MDRO Wnd (03-31-2017 22:09) SPECIME SWAB complet N 017 TRANSPO ed CONTAIN 22:09 RT ER SWAB(S) INFO: L CC XXX NOTAP complet VC-aCnc 017 NOT ed 22:09 APPLICA BLE L Bacteri [id number] complet a XXX 017 06 No ed Anaerob 22:09 growth e+Aerob (qualif e Cult ier value) SCT NG1 NO GROWTH DAY 1. L Bacteria XXX Anaerobe+Aerobe Cult (03-31-2017 22:09) Bacteri [id number] complet a XXX 017 06 No ed Anaerob 22:09 growth e+Aerob (qualif e Cult ier value) SCT NGB6 NO GROWTH DAY 5. L SPECIME [id number] complet N 03 ed CONTAIN 22:09 blood ER volume INFO: estimat ion (proced ure) SCT BVA BLOOD CULTURE VOLUME ACCEPTA BLE L SPECIME FANB complet N 017 AEROBIC ed CONTAIN 22:09 FAN ER AND INFO: ANAEROB IC BLOOD CULTURE BOTTLES L MDRO Wnd (03-31-2017 22:09) CC XXX NOTAP complet VC-aCn 017 NOT ed 22:09 APPLICA BLE L Bacteri NG020 complet a XXX 017 NO ed Anaerob 22:09 GROWTH e+Aerob IN <20 e Cult HOURS. L SPECIME SWAB complet N 017 TRANSPO ed CONTAIN 22:09 RT ER SWAB(S) INFO: L Bacteria XXX Anaerobe+Aerobe Cult (03-31-2017 22:09) Bacteri [id number] complet a XXX 017 06 No ed Anaerob 22:09 growth e+Aerob (qualif e Cult ier value) SCT [id number] NO GROWTH IN <23 HOURS. L SPECIME [id number] complet N 017 03 ed CONTAIN 22:09 blood ER volume INFO: estimat ion (proced ure) SCT BVA BLOOD CULTURE VOLUME ACCEPTA BLE L SPECIME FANB complet N 017 AEROBIC ed CONTAIN 22:09 FAN ER AND INFO: ANAEROB IC BLOOD CULTURE BOTTLES L MRSA DNA XXX Ql PCR (03-31-2017 22:09) MRSA [id number] NEGATIV complet PCR 017 05 E for ed RESULT 22:09 analyte MRSA not DNA by detecte PCR, d SCT MRSA NOMRSA coloniz NEGATIV ation E for unlikel MRSA y. DNA by PCR, MRSA coloniz ation unlikel y. L MOLECUL Nares complet AR SPEC 017 (NARES) ed 22:09 DESCRIP TION MRSA BY [id number] complet PCR 017 05 ed 22:09 analyte not detecte d SCT NOMRSA NEGATIV E for MRSA DNA by PCR, MRSA coloniz ation unlikel y. L Phosphate SerPl-mCnc (03-31-2017 22:09) Phospha 3.4 2.5-4.5 complet te 017 mg/dL ed SerPl-m 22:09 Cnc Magnesium SerPl-mCnc (03-31-2017 22:09) Magnesi 2.0 1.9-2.4 complet um 017 mg/dL ed SerPl-m 22:09 Cnc Phosphate SerPl-mCnc (03-27-2017 03:14) Phospha 4.2 2.5-4.5 complet te 017 mg/dL ed SerPl-m 03:14 Cnc Magnesium SerPl-mCnc (03-27-2017 03:14) Magnesi 2.4 1.9-2.4 complet um 017 mg/dL ed SerPl-m 03:14 Cnc Phosphate SerPl-mCnc (03-26-2017 03:43) Phospha 4.5 2.5-4.5 complet te 017 mg/dL ed SerPl-m 03:43 Cnc Magnesium SerPl-mCnc (03-26-2017 03:43) Magnesi 2.2 1.9-2.4 complet um 017 mg/dL ed SerPl-m 03:43 Cnc Ca-I SerPl ISE-sCnc (03-26-2017 03:43) Ca-I 4.7 4.6-5.1 complet SerPl 017 mg/dL [...] 23:23 Cnc MDRO Wnd (03-23-2017 22:17) Bacteri [id number] complet a XXX 017 06 No ed Anaerob 22:17 growth e+Aerob (qualif e Cult ier value) SCT NG1 NO GROWTH DAY 1. L CC XXX NOTAP complet VC-aCnc 017 NOT ed 22:17 APPLICA BLE L Ca-I SerPl ISE-sCnc (03-23-2017 02:10) Ca-I 4.7 4.6-5.1 complet SerPl 017 mg/dL ed ISE-sCn 02:10 c Phosphate SerPl-mCnc (03-23-2017 02:10) Phospha 3.1 2.5-4.5 complet te 017 mg/dL ed SerPl-m 02:10 Cnc Magnesium SerPl-mCnc (03-23-2017 02:10) Magnesi 2.1 1.9-2.4 complet um 017 mg/dL ed SerPl-m 02:10 Cnc Phosphate SerPl-mCnc (03-22-2017 03:34) Phospha 2.3 2.5-4.5 complet te 017 mg/dL ed SerPl-m 03:34 Cnc Magnesium SerPl-mCnc (03-22-2017 03:34) Magnesi 2 2.1 1.9-2.4 complet um 017 mg/dL ed SerPl-m 03:34 Cnc Bacteria XXX Resp Cult (03-21-2017 17:02) Bacteri C48 ... complet a XXX 017 IF ed Anaerob 17:02 WORKUP e+Aerob REQUIRE e Cult D, CALL BACT ([id number]) WITHIN 48 HRS. L Bacteri [id number] complet a XXX 017 8 Gram ed Anaerob 17:02 negativ e+Aerob e e Cult bacillu s (organi sm) SCT GNR GRAM NEGATIV E SAYDA L CC XXX MGRO complet VC-aCnc 017 MODERAT ed 17:02 E GROWTH L Phosphate SerPl-mCnc (03-21-2017 02:12) Phospha 1.8 2.5-4.5 complet te 017 mg/dL ed SerPl-m 02:12 Cnc Magnesium SerPl-mCnc (03-21-2017 02:12) Magnesi 2.1 1.9-2.4 complet um 017 mg/dL ed SerPl-m 02:12 Cnc Phosphate SerPl-mCnc (03-20-2017 02:24) Phospha 2.8 2.5-4.5 complet te 017 mg/dL ed SerPl-m 02:24 Cnc Magnesium SerPl-mCnc (03-20-2017 02:24) Magnesi 2.0 1.9-2.4 complet um 017 mg/dL ed SerPl-m 02:24 Cnc MDRO Wnd (03-19-2017 15:35) Bacteri [id number] complet a XXX 017 06 No ed Anaerob 15:35 growth e+Aerob (qualif e Cult ier value) SCT NG1 NO GROWTH DAY 1. L CC XXX NOTAP complet VC-aCnc 017 NOT ed 15:35 APPLICA BLE L Magnesium SerPl-mCnc (03-19-2017 14:09) Magnesi 2.0 1.9-2.4 complet um 017 mg/dL ed SerPl-m 14:09 Cnc Phosphate SerPl-mCnc (03-19-2017 14:09) Phospha 4.3 2.5-4.5 complet te 017 mg/dL ed SerPl-m 14:09 Cnc Chloride Bld-sCnc (03-19-2017 11:38) Chlorid 109 101-108 complet e 017 mmol/L ed Bld-sCn 11:38 c CAMERON Prep XXX (03-19-2017 11:11) CAMERON [id number] complet 017 03 ed 11:11 sample: fungus not isolate d (findin g) SCT NOFEO NO FUNGAL ELEMENT S OBSERVE D L Fungus Tiss Cult (03-19-2017 11:11) Bacteri [id number] complet a XXX 017 03 ed Anaerob 11:11 sample: e+Aerob fungus e Cult not isolate d (findin g) SCT NF42 NO FUNGAL GROWTH AT 6 WEEKS L Bacteri [id number] complet a XXX 017 03 ed Anaerob 11:11 sample: e+Aerob fungus e Cult not isolate d (findin g) SCT NF21 NO FUNGAL GROWTH AT 3 WEEKS L SPECIME RCVD complet N 017 ORDER ed CONTAIN 11:11 PROCESS ER ED. L INFO: Bacteria XXX Anaerobe Cult (03-19-2017 11:11) Bacteri [id number] complet a XXX 017 06 No ed Anaerob 11:11 growth e+Aerob (qualif e Cult ier value) SCT NG4 NO GROWTH DAY 4. L Bacteria Wnd Cult (03-19-2017 11:11) Bacteri [id number] complet a XXX 017 06 No ed Anaerob 11:11 growth e+Aerob (qualif e Cult ier value) SCT NG4 NO GROWTH DAY 4. L CC XXX NOTAP complet VC-aCnc 017 NOT ed 11:11 APPLICA BLE L Acid fast Stn XXX Ql (03-19-2017 10:56) ACID [id number] complet FAST 017 8 not ed STAIN 10:56 seen (qualif ier value) SCT NOAFB NO AFB SEEN L Mycobacterium XXX Ql Cult (03-19-2017 10:56) Bacteri [id number] complet a XXX 017 00 not ed Anaerob 10:56 isolate e+Aerob d e Cult (qualif ier value) SCT NM42 NO ACID FAST BACILLI ISOLATE D AT 6 WEEKS L Bacteri [id number] complet a XXX 017 00 not ed Anaerob 10:56 isolate e+Aerob d e Cult (qualif ier value) SCT NM21 NO ACID FAST BACILLI ISOLATE D AT 3 WEEKS L SPECIME TISS complet N 017 TISSUE ed CONTAIN 10:56 L ER INFO: SPECIME SUBM complet N 017 MODE OF ed CONTAIN 10:56 ER SUBMISS INFO: ION: L SPECIME RCVD complet N 017 ORDER ed CONTAIN 10:56 PROCESS ER ED. L INFO: Fungus Tiss Cult (03-19-2017 10:56) Bacteri 09-28-2 NASF NO complet a XXX 017 ed Anaerob 10:56 ADDITIO e+Aerob NAL e Cult SIGNIFI CANT FUNGAL GROWTH AT 6 WEEKS L Bacteri [id number] complet a XXX 017 3 ed Anaerob 10:56 Cryptoc e+Aerob occus e Cult neoform ans (organi sm) SCT CRYN CRYPTOC OCCUS NEOFORM ANS L SPECIME RCVD complet N 017 ORDER ed CONTAIN 10:56 PROCESS ER ED. L INFO: CAMERON Prep XXX (03-19-2017 10:56) CAMERON [id number] complet 017 03 ed 10:56 sample: fungus not isolate d (findin g) SCT NOFEO NO FUNGAL ELEMENT S OBSERVE D L Bacteria XXX Anaerobe Cult (03-19-2017 10:56) Bacteri [id number] complet a XXX 017 06 No ed Anaerob 10:56 growth e+Aerob (qualif e Cult ier value) SCT NG4 NO GROWTH DAY 4. L Bacteria Tiss Cult (03-19-2017 10:56) Bacteri [id number] complet a XXX 017 06 No ed Anaerob 10:56 growth e+Aerob (qualif e Cult ier value) SCT NG4 NO GROWTH DAY 4. L CC XXX NOTAP complet VC-aCnc 017 NOT ed 10:56 APPLICA BLE L Acid fast Stn XXX Ql (03-19-2017 09:58) ACID [id number] complet FAST 017 8 not ed STAIN 09:58 seen (qualif ier value) SCT NOAFB NO AFB SEEN L Mycobacterium XXX Ql Cult (03-19-2017 09:58) Bacteri [id number] complet a XXX 017 00 not ed Anaerob 09:58 isolate e+Aerob d e Cult (qualif ier value) SCT NM42 NO ACID FAST BACILLI ISOLATE D AT 6 WEEKS L Bacteri [id number] complet a XXX 017 00 not ed Anaerob 09:58 isolate e+Aerob d e Cult (qualif ier value) SCT NM21 NO ACID FAST BACILLI ISOLATE D AT 3 WEEKS L SPECIME TISS complet N 017 TISSUE ed CONTAIN 09:58 L ER INFO: SPECIME SUBM complet N 017 MODE OF ed CONTAIN 09:58 ER SUBMISS INFO: ION: L SPECIME RCVD complet N 017 ORDER ed CONTAIN 09:58 PROCESS ER ED. L INFO: Fungus Tiss Cult (03-19-2017 09:58) SPECIME RCVD complet N 017 ORDER ed CONTAIN 09:58 PROCESS ER ED. L INFO: Bacteri [id number] complet a XXX 017 03 ed Anaerob 09:58 sample: e+Aerob fungus e Cult not isolate d (findin g) SCT NF42 NO FUNGAL GROWTH AT 6 WEEKS L Bacteri [id number] complet a XXX 017 03 ed Anaerob 09:58 sample: e+Aerob fungus e Cult not isolate d (findin g) SCT NF21 NO FUNGAL GROWTH AT 3 WEEKS L CAMERON Prep XXX (03-19-2017 09:58) CAMERON [id number] complet 017 03 ed 09:58 sample: fungus not isolate d (findin g) SCT NOFEO NO FUNGAL ELEMENT S OBSERVE D L Bacteria XXX Anaerobe Cult (03-19-2017 09:58) Bacteri C48 ... complet a XXX 017 IF ed Anaerob 09:58 WORKUP e+Aerob REQUIRE e Cult D, CALL BACT ([id number]) WITHIN 48 HRS. L Bacteri [id number] complet a XXX 017 08 ed Anaerob 09:58 Staphyl e+Aerob ococcus e Cult , coagula se negativ e (organi sm) SCT SCN COAGULA SE NEGATIV E STAPHYL OCOCCUS SPECIES L Bacteria Tiss Cult (03-19-2017 09:58) Bacteri [id number] complet a XXX 017 06 No ed Anaerob 09:58 growth e+Aerob (qualif e Cult ier value) SCT NG4 NO GROWTH DAY 4. L CC XXX NOTAP complet VC-aCnc 017 NOT ed 09:58 APPLICA BLE L Chloride Bld-sCnc (03-19-2017 09:10) Chlorid 110 101-108 complet e 017 mmol/L ed Bld-sCn 09:10 c
--- OUTSIDE RECORDS SUMMARY | 2017-05-26 15:54 | External Medical Summary Rpt | CCD ---
Author Author , RADHA GARCIA Address Unknown Phone [email or web address] Purpose Continuity of Care Document - 03-19-2017 [...] D72.829 Elevated white blood cell count, unspecified [id number] J18.1 Lobar pneumonia, unspecified organism J43.2 Centrilobul [...] NOT ed 22:09 APPLICA BLE L Bacteri [id number] complet a XXX 017 06 No ed Anaerob 22:09 growth e+Aerob (qualif e Cult ier value) SCT NG1 NO GROWTH DAY 1. L Bacteria XXX Anaerobe+Aerobe Cult (03-31-2017 22:09) Bacteri [id number] complet a XXX 017 06 No ed Anaerob 22:09 growth e+Aerob (qualif e Cult ier value) SCT NGB6 NO GROWTH DAY 5. L SPECIME [id number] complet N 03 ed CONTAIN 22:09 blood [...] Bacteria XXX Anaerobe+Aerobe Cult (03-31-2017 22:09) Bacteri [id number] complet a XXX 017 06 No ed Anaerob 22:09 growth e+Aerob (qualif e Cult ier value) SCT QVP934 NO GROWTH IN <23 HOURS. L SPECIME [id number] complet N 017 03 ed CONTAIN 22:09 blood ER volume INFO: estimat ion (proced ure) SCT BVA BLOOD CULTURE VOLUME ACCEPTA BLE L SPECIME FANB complet N 017 AEROBIC ed CONTAIN 22:09 FAN ER AND INFO: ANAEROB IC BLOOD CULTURE BOTTLES L MRSA DNA XXX Ql PCR (03-31-2017 22:09) MRSA [id number] NEGATIV complet PCR 017 05 E for ed RESULT 22:09 analyte MRSA not DNA by detecte PCR, d SCT MRSA NOMRSA coloniz NEGATIV ation E for unlikel MRSA y. DNA by PCR, MRSA coloniz ation unlikel y. L MOLECUL Nares complet AR SPEC 017 (NARES) ed 22:09 DESCRIP TION MRSA BY [id number] complet PCR 017 05 ed 22:09 analyte [...] 23:23 Cnc MDRO Wnd (03-23-2017 22:17) Bacteri [id number] complet a XXX 017 06 No ed [...] e+Aerob REQUIRE e Cult D, CALL BACT ([id number]) WITHIN 48 HRS. L Bacteri [id number] complet a XXX 017 8 Gram ed [...] 02:24 Cnc MDRO Wnd (03-19-2017 15:35) Bacteri [id number] complet a XXX 017 06 No ed [...] c CAMERON Prep XXX (03-19-2017 11:11) CAMERON [id number] complet 017 03 ed 11:11 sample: fungus not isolate d (findin g) SCT NOFEO NO FUNGAL ELEMENT S OBSERVE D L Fungus Tiss Cult (03-19-2017 11:11) Bacteri [id number] complet a XXX 017 03 ed Anaerob 11:11 sample: e+Aerob fungus e Cult not isolate d (findin g) SCT NF42 NO FUNGAL GROWTH AT 6 WEEKS L Bacteri [id number] complet a XXX 017 03 ed Anaerob 11:11 sample: e+Aerob fungus e Cult not isolate d (findin g) SCT NF21 NO FUNGAL GROWTH AT 3 WEEKS L SPECIME RCVD complet N 017 ORDER ed CONTAIN 11:11 PROCESS ER ED. L INFO: Bacteria XXX Anaerobe Cult (03-19-2017 11:11) Bacteri [id number] complet a XXX 017 06 No ed Anaerob 11:11 growth e+Aerob (qualif e Cult ier value) SCT NG4 NO GROWTH DAY 4. L Bacteria Wnd Cult (03-19-2017 11:11) Bacteri [id number] complet a XXX 017 06 No ed Anaerob 11:11 growth e+Aerob (qualif e Cult ier value) SCT NG4 NO GROWTH DAY 4. L CC XXX NOTAP complet VC-aCnc 017 NOT ed 11:11 APPLICA BLE L Acid fast Stn XXX Ql (03-19-2017 10:56) ACID [id number] complet FAST 017 8 not ed STAIN 10:56 seen (qualif ier value) SCT NOAFB NO AFB SEEN L Mycobacterium XXX Ql Cult (03-19-2017 10:56) Bacteri [id number] complet a XXX 017 00 not ed Anaerob 10:56 isolate e+Aerob d e Cult (qualif ier value) SCT NM42 NO ACID FAST BACILLI ISOLATE D AT 6 WEEKS L Bacteri [id number] complet a XXX 017 00 not ed [...] FUNGAL GROWTH AT 6 WEEKS L Bacteri [id number] complet a XXX 017 3 ed Anaerob 10:56 Cryptoc e+Aerob occus e Cult neoform ans (organi sm) SCT CRYN CRYPTOC OCCUS NEOFORM ANS L SPECIME RCVD complet N 017 ORDER ed CONTAIN 10:56 PROCESS ER ED. L INFO: CAMERON Prep XXX (03-19-2017 10:56) CAMERON [id number] complet 017 03 ed 10:56 sample: fungus not isolate d (findin g) SCT NOFEO NO FUNGAL ELEMENT S OBSERVE D L Bacteria XXX Anaerobe Cult (03-19-2017 10:56) Bacteri [id number] complet a XXX 017 06 No ed Anaerob 10:56 growth e+Aerob (qualif e Cult ier value) SCT NG4 NO GROWTH DAY 4. L Bacteria Tiss Cult (03-19-2017 10:56) Bacteri [id number] complet a XXX 017 06 No ed Anaerob 10:56 growth e+Aerob (qualif e Cult ier value) SCT NG4 NO GROWTH DAY 4. L CC XXX NOTAP complet VC-aCnc 017 NOT ed 10:56 APPLICA BLE L Acid fast Stn XXX Ql (03-19-2017 09:58) ACID [id number] complet FAST 017 8 not ed STAIN 09:58 seen (qualif ier value) SCT NOAFB NO AFB SEEN L Mycobacterium XXX Ql Cult (03-19-2017 09:58) Bacteri [id number] complet a XXX 017 00 not ed Anaerob 09:58 isolate e+Aerob d e Cult (qualif ier value) SCT NM42 NO ACID FAST BACILLI ISOLATE D AT 6 WEEKS L Bacteri [id number] complet a XXX 017 00 not ed [...] 09:58 PROCESS ER ED. L INFO: Bacteri [id number] complet a XXX 017 03 ed Anaerob 09:58 sample: e+Aerob fungus e Cult not isolate d (findin g) SCT NF42 NO FUNGAL GROWTH AT 6 WEEKS L Bacteri [id number] complet a XXX 017 03 ed Anaerob 09:58 sample: e+Aerob fungus e Cult not isolate d (findin g) SCT NF21 NO FUNGAL GROWTH AT 3 WEEKS L CAMERON Prep XXX (03-19-2017 09:58) CAMERON [id number] complet 017 03 ed 09:58 sample: fungus not isolate d (findin g) SCT NOFEO NO FUNGAL ELEMENT S OBSERVE D L Bacteria XXX Anaerobe Cult (03-19-2017 09:58) Bacteri C48 ... complet a XXX 017 IF ed Anaerob 09:58 WORKUP e+Aerob REQUIRE e Cult D, CALL BACT ([id number]) WITHIN 48 HRS. L Bacteri [id number] complet a XXX 017 08 ed Anaerob 09:58 Staphyl e+Aerob ococcus e Cult , coagula se negativ e (organi sm) SCT SCN COAGULA SE NEGATIV E STAPHYL OCOCCUS SPECIES L Bacteria Tiss Cult (03-19-2017 09:58) Bacteri [id number] complet a XXX 017 06 No ed Anaerob 09:58 growth e+Aerob (qualif e Cult ier value) SCT NG4 NO GROWTH DAY 4. L CC XXX NOTAP complet VC-aCnc 017 NOT ed 09:58 APPLICA BLE L Chloride Bld-sCnc (03-19-2017 09:10) Chlorid 110 101-108 complet e 017 mmol/L ed Bld-sCn 09:10 c
--- OUTSIDE RECORDS SUMMARY | 2017-05-26 15:54 | External Medical Summary Rpt | CCD ---
Demographics Home Phone Preferred Language British Marital Status Unknown Restorationism Affiliation Unknown Race Unknown Ethnic Group Unknown Author Author , RADHA GARCIA Address Unknown Phone [email or web address] Immunization Name Date Rout CVX Reac Dose Comm Prov Is Faci e tion ent ider Refu lity Give sed n Tdap 07-1 Intr 115 999 Hist EWA No EWA , 6-20 amus oric LO LO Adso 16 cula al rbed r Info rmat ion - Sour ce Unsp ecif ied
[2017-05-26 16:25] LABS: BUN 16 mg/dL (7-18); GFR (ESTIMATED) 68 ML/MIN (>60)
--- NOTE | 2017-05-26 17:06 | RADIOLOGY REPORT PS360 ---
CTA-CHEST HISTORY: Shortness of breath, pain with deep breathing, history of pulmonary emboli RT UPPER LOBECTOMY ORDERING PHYSICIAN: Christie Mayo MD PATIENT AGE: 61 years TECHNIQUE: Helical acquisition obtained following the bolus administration of 60 mL of Isovue 370 followed by a saline bolus. Axial, sagittal, and coronal reformatted images are generated and reviewed. COMPARISON: None FINDINGS: There are no previous studies available for comparison. Patient has had prior chest surgery. There has been a prior right upper lobectomy. No obvious pulmonary embolus. There is mild dilatation of the ascending aorta at 4.1 cm. Fluid and soft tissue density is present in the right apex along with surgical clips. These findings are probably postsurgical in nature. One cannot the possibility of underlying neoplasm or loculated effusion without previous studies. Loculated effusion is present in the right lung base posteriorly with subpulmonic effusion noted on the right with multiple surgical clips in the right hilum and in the right upper lung zone and posterior hemithorax on the right superiorly. There are some small nodes in the right hilum as well as the AP window on the left There are centrilobular emphysema with bullous changes.. Bone plate is present along the lateral aspect of the right fifth rib in the posterior aspect of the right sixth rib. There are multiple right rib fractures including the right ninth rib and right eighth rib posteriorly with resection of part of the right sixth rib posteriorly. Mild amount atheromatous plaque is present with aorta. Upper abdominal images are unremarkable. IMPRESSION: 1. Status post right upper lobectomy with postsurgical changes in the right upper chest. Soft tissue and fluid density is present. Cannot exclude the possibility of residual or recurrent neoplasm. Correlation with old studies are needed. 2. No evidence of acute pulmonary embolus. 3. Loculated subpulmonic and posterior fusion on the right. There is a prominent subpulmonic component. 3. Centrilobular emphysematous change with bullous changes.
--- OUTSIDE RECORDS SUMMARY | 2017-05-26 18:22 | External Medical Summary Rpt | CCD ---
Author Author , RADHA GARCIA Address Unknown Phone [email or web address] Purpose Continuity of Care Document - 03-19-2017 [...] D72.829 Elevated white blood cell count, unspecified [id number] J18.1 Lobar pneumonia, unspecified organism J43.2 Centrilobul [...] Order Detail nces retati t Range on CBC w auto diff (05-26-2017 15:30) Automat = 0.1 0-0.2 complet ed 017 K/MM3 ed blood 15:30 basophi l count (count/ vo Baso % = 0.7 % 0.1-2.0 complet 017 ed 15:30 Automat = 0.4 0.0-0.4 complet ed 017 K/mm3 ed blood 15:30 eosinop hil count Automat = 4.7 % 0.1-12. complet ed 017 0 ed blood 15:30 eosinop hils/10 0 leukocy t Blood = 5.0 1.3-8.0 complet granulo 017 K/mm3 ed cytes 15:30 automat ed count (numb Granulo = 63.0 37.0-80 complet cyte 017 % .0 ed percent 15:30 age Blood = 37.2 42.0-52 complet hematoc 017 % .0 ed rit 15:30 (volume fractio n) Blood = 11.9 14.1-18 complet hemoglo 017 g/dL .0 ed bin 15:30 measure ment (mass/v olum Absolut = 1.9 0.7-4.5 complet e 017 K/mm3 ed lymphoc 15:30 yte count Lymphoc = 24.3 10-50 complet yte 017 % ed count, 15:30 blood, automat ed Mean = 29.3 27-31.2 complet corpusc 017 pg ed ular 15:30 hemoglo bin ([facility]) determ Automat = 31.9 31.8-35 complet ed 017 g/dl .4 ed erythro 15:30 cyte mean corpusc ular h Automat = 91.8 82.2-97 complet ed 017 fl .8 ed erythro 15:30 cyte mean corpusc ular v Absolut = 0.6 0.1-1.0 complet e 017 K/mm3 ed monocyt 15:30 e count [place] % = 7.3 % 1.7-9.3 complet 017 ed 15:30 Automat = 7.5 7.4-10. complet ed 017 fl 4 ed blood 15:30 platele t mean volume tita Blood = 300 142-424 complet platele 017 K/mm3 ed t count 15:30 Red = 4.05 4.6-6.2 complet blood 017 M/mm3 ed cell 15:30 count Automat = 13.6 11.5-17 complet ed 017 % .5 ed erythro 15:30 cyte distrib ution width Blood = 7.9 4.8-10. complet leukocy 017 K/MM3 8 ed julee 15:30 count (number /volume ) Cardiac enzymes (05-26-2017 15:30) Serum = 0.8 0-4.0 complet or 017 U/L ed plasma 15:30 creatin e kinase MB (CK-M Serum < 0.5 0.0-3.6 complet or 017 ng/mL ed plasma 15:30 creatin e kinase MB measu Serum = 66 39-308 complet or 017 U/L ed plasma 15:30 creatin e kinase measure m Serum < 0.02 0.00-0. complet or 017 ng/mL 06 ed plasma 15:30 troponi n i.cardi ac measu Comprehensive metabolic panel (05-26-2017 15:30) Serum = 0.9 1.1-1.8 complet or 017 ed plasma 15:30 albumin /globul in mass ra Serum = 3.3 3.4-5.0 complet or 017 gm/dL ed plasma 15:30 albumin measure ment (mas Serum = 69 46-116 complet or 017 U/L ed plasma 15:30 alkalin e phospha tase tita Serum = 0.1 0.2-1.0 complet or 017 mg/dL ed plasma 15:30 total bilirub in measure m Serum = 16 7-18 complet or 017 mg/dL ed plasma 15:30 urea nitroge n measure men Serum = 8.8 8.5-10. complet or 017 mg/dL 1 ed plasma 15:30 calcium measure ment (mas Serum = 108 98-107 complet or 017 mmoL/L ed plasma 15:30 chlorid e measure ment (mo Carbon = 30 21.0-32 complet dioxide 017 mmoL/L .0 ed 15:30 measure ment Serum = 1.1 0.70-1. complet or 017 mg/dL 30 ed plasma 15:30 creatin ine measure ment ( Estimat = 73 50-200 complet ion of 017 ML/MIN ed creatin 15:30 ine renal clearan ce Estimat = 68 >60 complet ed 017 ML/MIN ed glomeru 15:30 lar filtrat ion rate (GF Comment: REFERENCE RANGE: >60 ML/MIN/1.73 SQUARE METERS Comment: If this patient is -[place]ian, then multiply the Comment: result by 1.210. Serum = 3.8 1.3-3.2 complet globuli 017 gm/dL ed n 15:30 measure ment (mass/v olume) Serum = 112 74-106 complet or 017 mg/dL ed plasma 15:30 glucose measure ment (mas Serum = 4.0 3.5-5.1 complet potassi 017 mmoL/L ed um 15:30 measure ment Serum = 144 136-145 complet sodium 017 mmoL/L ed measure 15:30 ment Serum = 13 15-37 complet or 017 U/L ed plasma 15:30 asparta te aminotr ansfera ALT = 13 12-78 complet (SGPT) 017 U/L ed ser/mis 15:30 s Protein = 7.1 6.4-8.2 complet total 017 gm/dL ed ser/mis 15:30 s Vancomycin Peak SerPl-mCnc (04-03-2017 12:07) Vancomy 30.8 20.0-40 complet korin 017 ug/mL .0 ed Peak 12:07 SerPl-m Cnc Vancomycin Trough SerPl-mCnc (04-03-2017 07:59) Vancomy 10-13-2 17.9 10.0-20 complet korin 017 ug/mL .0 ed Trough 07:59 SerPl-m Cnc Ca-I SerPl ISE-sCnc (04-03-2017 03:21) Ca-I 4.5 4.6-5.1 complet SerPl 017 mg/dL ed ISE-sCn 03:21 c Magnesium SerPl-mCnc (04-03-2017 03:21) Magnesi 2.1 1.9-2.4 complet um 017 mg/dL ed SerPl-m 03:21 Cnc Phosphate SerPl-mCnc (04-03-2017 03:21) Phospha 3.6 2.5-4.5 complet te 017 mg/dL ed SerPl-m 03:21 Cnc Magnesium SerPl-mCnc (04-02-2017 03:49) Magnesi 2.1 1.9-2.4 complet um 017 mg/dL ed SerPl-m 03:49 Cnc Phosphate SerPl-mCnc (04-02-2017 03:49) Phospha 4.0 2.5-4.5 complet te 017 mg/dL ed SerPl-m 03:49 Cnc Vancomycin SerPl-mCnc (04-01-2017 17:46) Vancomy 04-01- 7.8 0-40.0 complet korin 017 ug/mL ed SerPl-m 17:46 Cnc Vancomycin SerPl-mCnc (04-01-2017 04:17) Vancomy 04-01-2 21.1 0-40.0 complet korin 017 ug/mL ed SerPl-m 04:17 Cnc Magnesium SerPl-mCnc (04-01-2017 04:17) Magnesi 2.0 1.9-2.4 complet um 017 mg/dL ed SerPl-m 04:17 Cnc Phosphate SerPl-mCnc (04-01-2017 04:17) Phospha 3.7 2.5-4.5 complet te 017 mg/dL ed SerPl-m 04:17 Cnc MDRO Wnd (03-31-2017 22:09) SPECIME SWAB complet N 017 TRANSPO ed CONTAIN 22:09 RT ER SWAB(S) INFO: L CC XXX NOTAP complet VC-aCnc 017 NOT ed 22:09 APPLICA BLE L Bacteri [id number] complet a XXX 017 06 No ed Anaerob 22:09 growth e+Aerob (qualif e Cult ier value) SCT NG1 NO GROWTH DAY 1. L Bacteria XXX Anaerobe+Aerobe Cult (03-31-2017 22:09) SPECIME FANB complet N 017 AEROBIC ed CONTAIN 22:09 FAN ER AND INFO: ANAEROB IC BLOOD CULTURE BOTTLES L SPECIME [id number] complet N 017 03 ed CONTAIN 22:09 blood ER volume INFO: estimat ion (proced ure) SCT BVA BLOOD CULTURE VOLUME ACCEPTA BLE L Bacteri [id number] complet a XXX 017 06 No ed Anaerob 22:09 growth e+Aerob (qualif e Cult ier value) SCT NGB6 NO GROWTH DAY 5. L Magnesium SerPl-mCnc (03-31-2017 22:09) Magnesi 2.0 1.9-2.4 complet um 017 mg/dL ed SerPl-m 22:09 Cnc Phosphate SerPl-mCnc (03-31-2017 22:09) Phospha 3.4 2.5-4.5 complet te 017 mg/dL ed SerPl-m 22:09 Cnc MDRO Wnd (03-31-2017 22:09) SPECIME SWAB complet N 017 TRANSPO ed CONTAIN 22:09 RT ER SWAB(S) INFO: L Bacteri NG020 complet a XXX 017 NO ed Anaerob 22:09 GROWTH e+Aerob IN <20 e Cult HOURS. L CC XXX NOTAP complet VC-aCnc 017 NOT ed 22:09 APPLICA BLE L MRSA DNA XXX Ql PCR (03-31-2017 22:09) MRSA BY [id number] complet PCR 017 05 ed 22:09 analyte not detecte d SCT NOMRSA NEGATIV E for MRSA DNA by PCR, MRSA coloniz ation unlikel y. L MOLECUL Nares complet AR SPEC 017 (NARES) ed 22:09 DESCRIP TION MRSA [id number] NEGATIV complet PCR 017 05 E for ed RESULT 22:09 analyte MRSA not DNA by detecte PCR, d SCT MRSA NOMRSA coloniz NEGATIV ation E for unlikel MRSA y. DNA by PCR, MRSA coloniz ation unlikel y. L Bacteria XXX Anaerobe+Aerobe Cult (03-31-2017 22:09) SPECIME FANB complet N 017 AEROBIC ed CONTAIN 22:09 FAN ER AND INFO: ANAEROB IC BLOOD CULTURE BOTTLES L SPECIME [id number] complet N 017 03 ed CONTAIN 22:09 blood ER volume INFO: estimat ion (proced ure) SCT BVA BLOOD CULTURE VOLUME ACCEPTA BLE L Bacteri [id number] complet a XXX 017 06 No ed Anaerob 22:09 growth e+Aerob (qualif e Cult ier value) SCT TOD568 NO GROWTH IN <23 HOURS. L Magnesium SerPl-mCnc (03-27-2017 03:14) Magnesi 2.4 1.9-2.4 complet um 017 mg/dL ed SerPl-m 03:14 Cnc Phosphate SerPl-mCnc (03-27-2017 03:14) Phospha 4.2 2.5-4.5 complet te 017 mg/dL ed SerPl-m 03:14 Cnc Ca-I SerPl ISE-sCnc (03-26-2017 03:43) Ca-I 4.7 4.6-5.1 complet SerPl 017 mg/dL ed ISE-sCn 03:43 c Magnesium SerPl-mCnc (03-26-2017 03:43) Magnesi 2.2 1.9-2.4 complet um 017 mg/dL ed SerPl-m 03:43 Cnc Phosphate SerPl-mCnc (03-26-2017 03:43) Phospha 4.5 2.5-4.5 complet te 017 mg/dL ed SerPl-m 03:43 Cnc Ca-I SerPl ISE-sCnc (03-25-2017 00:49) Ca-I 4.4 4.6-5.1 complet SerPl 017 mg/dL ed ISE-sCn 00:49 c Magnesium SerPl-mCnc (03-25-2017 00:49) Magnesi 2.1 1.9-2.4 complet um 017 mg/dL ed SerPl-m 00:49 Cnc Phosphate SerPl-mCnc (03-25-2017 00:49) Phospha 4.0 2.5-4.5 complet te 017 mg/dL ed SerPl-m 00:49 Cnc Ca-I SerPl ISE-sCnc (03-24-2017 03:16) Ca-I 4.6 4.6-5.1 complet SerPl 017 mg/dL ed ISE-sCn 03:16 c Magnesium SerPl-mCnc (03-24-2017 03:16) Magnesi 2.2 1.9-2.4 complet um 017 mg/dL ed SerPl-m 03:16 Cnc Phosphate SerPl-mCnc (03-24-2017 03:16) Phospha 4.0 2.5-4.5 complet te 017 mg/dL ed SerPl-m 03:16 Cnc Vancomycin SerPl-mCnc (03-24-2017 03:16) Vancomy 20.5 0-40.0 complet korin 017 ug/mL ed SerPl-m 03:16 Cnc Magnesium SerPl-mCnc (03-24-2017 03:16) Magnesi TCON 1.9-2.4 complet um 017 Multipl ed SerPl-m 03:16 e SCM Cnc orders. Tests consoli dated. L mg/dL Phosphate SerPl-mCnc (03-24-2017 03:16) Phospha TCON 2.5-4.5 complet te 017 Multipl ed SerPl-m 03:16 e SCM Cnc orders. Tests consoli dated. L mg/dL Vancomycin SerPl-mCnc (03-23-2017 23:23) Vancomy 11.5 0-40.0 complet korin 017 ug/mL ed SerPl-m 23:23 Cnc MDRO Wnd (03-23-2017 22:17) CC XXX NOTAP complet VC-aCnc 017 NOT ed 22:17 APPLICA BLE L Bacteri [id number] complet a XXX 017 06 No ed Anaerob 22:17 growth e+Aerob (qualif e Cult ier value) SCT NG1 NO GROWTH DAY 1. L Magnesium SerPl-mCnc (03-23-2017 02:10) Magnesi 2.1 1.9-2.4 complet um 017 mg/dL ed SerPl-m 02:10 Cnc Phosphate SerPl-mCnc (03-23-2017 02:10) Phospha 3.1 2.5-4.5 complet te 017 mg/dL ed SerPl-m 02:10 Cnc Ca-I SerPl ISE-sCnc (03-23-2017 02:10) Ca-I 4.7 4.6-5.1 complet SerPl 017 mg/dL ed ISE-sCn 02:10 c Magnesium SerPl-mCnc (03-22-2017 03:34) Magnesi 2.1 1.9-2.4 complet um 017 mg/dL ed SerPl-m 03:34 Cnc Phosphate SerPl-mCnc (03-22-2017 03:34) Phospha 2.3 2.5-4.5 complet te 017 mg/dL ed SerPl-m 03:34 Cnc Bacteria XXX Resp Cult (03-21-2017 17:02) CC XXX MGRO complet VC-aCnc 017 MODERAT ed 17:02 E GROWTH L Bacteri [id number] complet a XXX 017 8 Gram ed Anaerob 17:02 negativ e+Aerob e e Cult bacillu s (organi sm) SCT GNR GRAM NEGATIV E SAYDA L Bacteri C48 ... complet a XXX 017 IF ed Anaerob 17:02 WORKUP e+Aerob REQUIRE e Cult D, CALL BACT ([id number]) WITHIN 48 HRS. L Magnesium SerPl-mCnc (03-21-2017 02:12) Magnesi 2.1 1.9-2.4 complet um 017 mg/dL ed SerPl-m 02:12 Cnc Phosphate SerPl-mCnc (03-21-2017 02:12) Phospha 1.8 2.5-4.5 complet te 017 mg/dL ed SerPl-m 02:12 Cnc Magnesium SerPl-mCnc (03-20-2017 02:24) Magnesi 2.0 1.9-2.4 complet um 017 mg/dL ed SerPl-m 02:24 Cnc Phosphate SerPl-mCnc (03-20-2017 02:24) Phospha 2.8 2.5-4.5 complet te 017 mg/dL ed SerPl-m 02:24 Cnc MDRO Wnd (03-19-2017 15:35) CC XXX NOTAP complet VC-aCnc 017 NOT ed 15:35 APPLICA BLE L Bacteri [id number] complet a XXX 017 06 No ed Anaerob 15:35 growth e+Aerob (qualif e Cult ier value) SCT NG1 NO GROWTH DAY 1. L Magnesium SerPl-mCnc (03-19-2017 14:09) Magnesi 2.0 1.9-2.4 complet um 017 mg/dL ed SerPl-m 14:09 Cnc Phosphate SerPl-mCnc (03-19-2017 14:09) Phospha 4.3 2.5-4.5 complet te 017 mg/dL ed SerPl-m 14:09 Cnc Chloride Bld-sCnc (03-19-2017 11:38) Chlorid 109 101-108 complet e 017 mmol/L ed Bld-sCn 11:38 c Fungus Tiss Cult (03-19-2017 11:11) SPECIME RCVD complet N 017 ORDER ed CONTAIN 11:11 PROCESS ER ED. L INFO: Bacteri [id number] complet a XXX 017 03 ed Anaerob 11:11 sample: e+Aerob fungus e Cult not isolate d (findin g) SCT NF21 NO FUNGAL GROWTH AT 3 WEEKS L Bacteri [id number] complet a XXX 017 03 ed Anaerob 11:11 sample: e+Aerob fungus e Cult not isolate d (findin g) SCT NF42 NO FUNGAL GROWTH AT 6 WEEKS L CAMERON Prep XXX (03-19-2017 11:11) CAMERON [id number] complet 017 03 ed 11:11 sample: fungus not isolate d (findin g) SCT NOFEO NO FUNGAL ELEMENT S OBSERVE D L Bacteria Wnd Cult (03-19-2017 11:11) CC XXX NOTAP complet VC-aCnc 017 NOT ed 11:11 APPLICA BLE L Bacteri [id number] complet a XXX 017 06 No ed Anaerob 11:11 growth e+Aerob (qualif e Cult ier value) SCT NG4 NO GROWTH DAY 4. L Bacteria XXX Anaerobe Cult (03-19-2017 11:11) Bacteri [id number] complet a XXX 017 06 No ed Anaerob 11:11 growth e+Aerob (qualif e Cult ier value) SCT NG4 NO GROWTH DAY 4. L CAMERON Prep XXX (03-19-2017 10:56) CAMERON [id number] complet 017 03 ed 10:56 sample: fungus not isolate d (findin g) SCT NOFEO NO FUNGAL ELEMENT S OBSERVE D L Fungus Tiss Cult (03-19-2017 10:56) SPECIME RCVD complet N 017 ORDER ed CONTAIN 10:56 PROCESS ER ED. L INFO: Bacteri [id number] complet a XXX 017 3 ed Anaerob 10:56 Cryptoc e+Aerob occus e Cult neoform ans (organi sm) SCT CRYN CRYPTOC OCCUS NEOFORM ANS L Bacteri NASF NO complet a XXX 017 ed Anaerob 10:56 ADDITIO e+Aerob NAL e Cult SIGNIFI CANT FUNGAL GROWTH AT 6 WEEKS L Mycobacterium XXX Ql Cult (03-19-2017 10:56) SPECIME RCVD complet N 017 ORDER ed CONTAIN 10:56 PROCESS ER ED. L INFO: SPECIME SUBM complet N 017 MODE OF ed CONTAIN 10:56 ER SUBMISS INFO: ION: L SPECIME TISS complet N 017 TISSUE ed CONTAIN 10:56 L ER INFO: Bacteri [id number] complet a XXX 017 00 not ed Anaerob 10:56 isolate e+Aerob d e Cult (qualif ier value) SCT NM21 NO ACID FAST BACILLI ISOLATE D AT 3 WEEKS L Bacteri [id number] complet a XXX 017 00 not ed Anaerob 10:56 isolate e+Aerob d e Cult (qualif ier value) SCT NM42 NO ACID FAST BACILLI ISOLATE D AT 6 WEEKS L Acid fast Stn XXX Ql (03-19-2017 10:56) ACID [id number] complet FAST 017 8 not ed STAIN 10:56 seen (qualif ier value) SCT NOAFB NO AFB SEEN L Bacteria Tiss Cult (03-19-2017 10:56) CC XXX NOTAP complet VC-aCnc 017 NOT ed 10:56 APPLICA BLE L Bacteri [id number] complet a XXX 017 06 No ed Anaerob 10:56 growth e+Aerob (qualif e Cult ier value) SCT NG4 NO GROWTH DAY 4. L Bacteria XXX Anaerobe Cult (03-19-2017 10:56) Bacteri [id number] complet a XXX 017 06 No ed Anaerob 10:56 growth e+Aerob (qualif e Cult ier value) SCT NG4 NO GROWTH DAY 4. L CAMERON Prep XXX (03-19-2017 09:58) CAMERON [id number] complet 017 03 ed 09:58 sample: fungus not isolate d (findin g) SCT NOFEO NO FUNGAL ELEMENT S OBSERVE D L Fungus Tiss Cult (03-19-2017 09:58) Bacteri [id number] complet a XXX 017 03 ed Anaerob 09:58 sample: e+Aerob fungus e Cult not isolate d (findin g) SCT NF21 NO FUNGAL GROWTH AT 3 WEEKS L Bacteri [id number] complet a XXX 017 03 ed Anaerob 09:58 sample: e+Aerob fungus e Cult not isolate d (findin g) SCT NF42 NO FUNGAL GROWTH AT 6 WEEKS L SPECIME RCVD complet N 017 ORDER ed CONTAIN 09:58 PROCESS ER ED. L INFO: Mycobacterium XXX Ql Cult (03-19-2017 09:58) SPECIME RCVD complet N 017 ORDER ed CONTAIN 09:58 PROCESS ER ED. L INFO: SPECIME SUBM complet N 017 MODE OF ed CONTAIN 09:58 ER SUBMISS INFO: ION: L SPECIME TISS complet N 017 TISSUE ed CONTAIN 09:58 L ER INFO: Bacteri [id number] complet a XXX 017 00 not ed Anaerob 09:58 isolate e+Aerob d e Cult (qualif ier value) SCT NM21 NO ACID FAST BACILLI ISOLATE D AT 3 WEEKS L Bacteri [id number] complet a XXX 017 00 not ed Anaerob 09:58 isolate e+Aerob d e Cult (qualif ier value) SCT NM42 NO ACID FAST BACILLI ISOLATE D AT 6 WEEKS L Acid fast Stn XXX Ql (03-19-2017 09:58) ACID [id number] complet FAST 017 8 not ed STAIN 09:58 seen (qualif ier value) SCT NOAFB NO AFB SEEN L Bacteria Tiss Cult (03-19-2017 09:58) CC XXX NOTAP complet VC-aCnc 017 NOT ed 09:58 APPLICA BLE L Bacteri [id number] complet a XXX 017 06 No ed Anaerob 09:58 growth e+Aerob (qualif e Cult ier value) SCT NG4 NO GROWTH DAY 4. L Bacteria XXX Anaerobe Cult (03-19-2017 09:58) Bacteri [id number] complet a XXX 017 08 ed Anaerob 09:58 Staphyl e+Aerob ococcus e Cult , coagula se negativ e (organi sm) SCT SCN COAGULA SE NEGATIV E STAPHYL OCOCCUS SPECIES L Bacteri C48 ... complet a XXX 017 IF ed Anaerob 09:58 WORKUP e+Aerob REQUIRE e Cult D, CALL BACT ([id number]) WITHIN 48 HRS. L Chloride Bld-sCnc (03-19-2017 09:10) Chlorid 110 101-108 complet e 017 mmol/L ed Bld-sCn 09:10 c
--- OUTSIDE RECORDS SUMMARY | 2017-05-26 18:22 | External Medical Summary Rpt | CCD ---
Author Author , RADHA GARCIA Address Unknown Phone [email or web address] Purpose Continuity of Care Document - 03-19-2017 [...] D72.829 Elevated white blood cell count, unspecified [id number] J18.1 Lobar pneumonia, unspecified organism J43.2 Centrilobul [...] 017 K/mm3 ed monocyt 15:30 e count [place] % = 7.3 % 1.7-9.3 complet 017 [...] SQUARE METERS Comment: If this patient is -[place], then multiply the Comment: result by 1.210. [...] NOT ed 22:09 APPLICA BLE L Bacteri [id number] complet a XXX 017 06 No ed Anaerob 22:09 growth e+Aerob (qualif e Cult ier value) SCT NG1 NO GROWTH DAY 1. L Bacteria XXX Anaerobe+Aerobe Cult (03-31-2017 22:09) SPECIME FANB complet N 017 AEROBIC ed CONTAIN 22:09 FAN ER AND INFO: ANAEROB IC BLOOD CULTURE BOTTLES L SPECIME [id number] complet N 017 03 ed CONTAIN 22:09 blood ER volume INFO: estimat ion (proced ure) SCT BVA BLOOD CULTURE VOLUME ACCEPTA BLE L Bacteri [id number] complet a XXX 017 06 No ed [...] XXX Ql PCR (03-31-2017 22:09) MRSA BY [id number] complet PCR 017 05 ed 22:09 analyte not detecte d SCT NOMRSA NEGATIV E for MRSA DNA by PCR, MRSA coloniz ation unlikel y. L MOLECUL Nares complet AR SPEC 017 (NARES) ed 22:09 DESCRIP TION MRSA [id number] NEGATIV complet PCR 017 05 E for [...] ANAEROB IC BLOOD CULTURE BOTTLES L SPECIME [id number] complet N 017 03 ed CONTAIN 22:09 blood ER volume INFO: estimat ion (proced ure) SCT BVA BLOOD CULTURE VOLUME ACCEPTA BLE L Bacteri [id number] complet a XXX 017 06 No ed Anaerob 22:09 growth e+Aerob (qualif e Cult ier value) SCT IQX457 NO GROWTH IN <23 HOURS. L Magnesium [...] NOT ed 22:17 APPLICA BLE L Bacteri [id number] complet a XXX 017 06 No ed [...] MODERAT ed 17:02 E GROWTH L Bacteri [id number] complet a XXX 017 8 Gram ed Anaerob 17:02 negativ e+Aerob e e Cult bacillu s (organi sm) SCT GNR GRAM NEGATIV E SAYDA L Bacteri C48 ... complet a XXX 017 IF ed Anaerob 17:02 WORKUP e+Aerob REQUIRE e Cult D, CALL BACT ([id number]) WITHIN 48 HRS. L Magnesium SerPl-mCnc (03-21-2017 [...] NOT ed 15:35 APPLICA BLE L Bacteri [id number] complet a XXX 017 06 No ed [...] 11:11 PROCESS ER ED. L INFO: Bacteri [id number] complet a XXX 017 03 ed Anaerob 11:11 sample: e+Aerob fungus e Cult not isolate d (findin g) SCT NF21 NO FUNGAL GROWTH AT 3 WEEKS L Bacteri [id number] complet a XXX 017 03 ed Anaerob 11:11 sample: e+Aerob fungus e Cult not isolate d (findin g) SCT NF42 NO FUNGAL GROWTH AT 6 WEEKS L CAMERON Prep XXX (03-19-2017 11:11) CAMERON [id number] complet 017 03 ed 11:11 sample: fungus not isolate d (findin g) SCT NOFEO NO FUNGAL ELEMENT S OBSERVE D L Bacteria Wnd Cult (03-19-2017 11:11) CC XXX NOTAP complet VC-aCnc 017 NOT ed 11:11 APPLICA BLE L Bacteri [id number] complet a XXX 017 06 No ed Anaerob 11:11 growth e+Aerob (qualif e Cult ier value) SCT NG4 NO GROWTH DAY 4. L Bacteria XXX Anaerobe Cult (03-19-2017 11:11) Bacteri [id number] complet a XXX 017 06 No ed Anaerob 11:11 growth e+Aerob (qualif e Cult ier value) SCT NG4 NO GROWTH DAY 4. L CAMERON Prep XXX (03-19-2017 10:56) CAMERON [id number] complet 017 03 ed 10:56 sample: fungus not isolate d (findin g) SCT NOFEO NO FUNGAL ELEMENT S OBSERVE D L Fungus Tiss Cult (03-19-2017 10:56) SPECIME RCVD complet N 017 ORDER ed CONTAIN 10:56 PROCESS ER ED. L INFO: Bacteri [id number] complet a XXX 017 3 ed Anaerob [...] ed CONTAIN 10:56 L ER INFO: Bacteri [id number] complet a XXX 017 00 not ed Anaerob 10:56 isolate e+Aerob d e Cult (qualif ier value) SCT NM21 NO ACID FAST BACILLI ISOLATE D AT 3 WEEKS L Bacteri [id number] complet a XXX 017 00 not ed Anaerob 10:56 isolate e+Aerob d e Cult (qualif ier value) SCT NM42 NO ACID FAST BACILLI ISOLATE D AT 6 WEEKS L Acid fast Stn XXX Ql (03-19-2017 10:56) ACID [id number] complet FAST 017 8 not ed STAIN 10:56 seen (qualif ier value) SCT NOAFB NO AFB SEEN L Bacteria Tiss Cult (03-19-2017 10:56) CC XXX NOTAP complet VC-aCnc 017 NOT ed 10:56 APPLICA BLE L Bacteri [id number] complet a XXX 017 06 No ed Anaerob 10:56 growth e+Aerob (qualif e Cult ier value) SCT NG4 NO GROWTH DAY 4. L Bacteria XXX Anaerobe Cult (03-19-2017 10:56) Bacteri [id number] complet a XXX 017 06 No ed Anaerob 10:56 growth e+Aerob (qualif e Cult ier value) SCT NG4 NO GROWTH DAY 4. L CAMERON Prep XXX (03-19-2017 09:58) CAMERON [id number] complet 017 03 ed 09:58 sample: fungus not isolate d (findin g) SCT NOFEO NO FUNGAL ELEMENT S OBSERVE D L Fungus Tiss Cult (03-19-2017 09:58) Bacteri [id number] complet a XXX 017 03 ed Anaerob 09:58 sample: e+Aerob fungus e Cult not isolate d (findin g) SCT NF21 NO FUNGAL GROWTH AT 3 WEEKS L Bacteri [id number] complet a XXX 017 03 ed Anaerob [...] ed CONTAIN 09:58 L ER INFO: Bacteri [id number] complet a XXX 017 00 not ed Anaerob 09:58 isolate e+Aerob d e Cult (qualif ier value) SCT NM21 NO ACID FAST BACILLI ISOLATE D AT 3 WEEKS L Bacteri [id number] complet a XXX 017 00 not ed Anaerob 09:58 isolate e+Aerob d e Cult (qualif ier value) SCT NM42 NO ACID FAST BACILLI ISOLATE D AT 6 WEEKS L Acid fast Stn XXX Ql (03-19-2017 09:58) ACID [id number] complet FAST 017 8 not ed STAIN 09:58 seen (qualif ier value) SCT NOAFB NO AFB SEEN L Bacteria Tiss Cult (03-19-2017 09:58) CC XXX NOTAP complet VC-aCnc 017 NOT ed 09:58 APPLICA BLE L Bacteri [id number] complet a XXX 017 06 No ed Anaerob 09:58 growth e+Aerob (qualif e Cult ier value) SCT NG4 NO GROWTH DAY 4. L Bacteria XXX Anaerobe Cult (03-19-2017 09:58) Bacteri [id number] complet a XXX 017 08 ed Anaerob 09:58 Staphyl e+Aerob ococcus e Cult , coagula se negativ e (organi sm) SCT SCN COAGULA SE NEGATIV E STAPHYL OCOCCUS SPECIES L Bacteri C48 ... complet a XXX 017 IF ed Anaerob 09:58 WORKUP e+Aerob REQUIRE e Cult D, CALL BACT ([id number]) WITHIN 48 HRS. L Chloride Bld-sCnc (03-19-2017 09:10) Chlorid 110 101-108 complet e 017 mmol/L ed Bld-sCn 09:10 c
--- OUTSIDE RECORDS SUMMARY | 2017-05-26 18:23 | External Medical Summary Rpt | CCD ---
Demographics Home Phone Preferred Language Swiss Marital Status Unknown Taoism Affiliation Unknown Race Unknown Ethnic Group Unknown Author Author , RADHA GARCIA Address Unknown Phone [email or web address] Immunization Name Date Rout CVX Reac Dose Comm Prov Is Faci e tion ent ider Refu lity Give sed n Tdap 07-1 Intr 115 999 Hist EWA No EWA , 6-20 amus oric LO LO Adso 16 cula al rbed r Info rmat ion - Sour ce Unsp ecif ied
--- OUTSIDE RECORDS SUMMARY | 2017-05-26 18:23 | External Medical Summary Rpt | CCD ---
Demographics Home Phone Preferred Language Ghanaian Marital Status Unknown Hinduism Affiliation Unknown Race Unknown Ethnic Group Unknown Author Author , RADHA GARCIA Address Unknown Phone [email or web address] Immunization Name Date Rout CVX Reac Dose Comm Prov Is Faci e tion ent ider Refu lity Give sed n Tdap 07-1 Intr 115 999 Hist EWA No EWA , 6-20 amus oric LO LO Adso 16 cula al rbed r Info rmat ion - Sour ce Unsp ecif ied
[2017-05-26 18:45] LABS: ARTERIAL ABE 1.3 MMOL/L (-2.4-+2.3); ARTERIAL PO2 54.9 MMHG (80-100); ARTERIAL TCO2 27.1 MMOL/L (23-27)
[2017-05-26 18:46] LABS: ALLEN'S TEST Y; OXYGEN R/A
[2017-05-26 19:29] VITALS: BP 157/98
[2017-05-26 20:10] VITALS: BP 157/98
[2017-05-27 00:25] VITALS: BP 139/84
[2017-05-27 04:30] VITALS: BP 130/83
[2017-05-27 06:57] LABS: HEMOGLOBIN 11.7 g/dL (14.1-18.0); LYMPH % 26.9 % (10-50)
--- NOTE | 2017-05-27 07:20 | PHARMACY CLINIC NOTE ---
Patient Demographics Patient Demographics Admission date: 05/26/17 Date: 05/27/17 Time: 07 Allergies Coded Allergies: No Known Allergies (02/04/17) HEIGHT- FT: 5 IN: 10.00 [id number] VTE General Information Labs: Laboratory Tests 05/27 1530 Hematology Hgb (14.1 - 18.0 g/dL) 11.7 L 11.9 L Hct (42.0 - 52.0 %) 37.4 L 37.2 L Plt Count (142 - 424 K/mm3) 272 300 Disclaimer The following section includes nursing documentation that has been pulled in for pharmacy review. Patient's VTE score: 1 Patient's VTE Risk: VERY LOW RISK Clinical trial participant? No VTE prophylaxis NQF [id number] VTE prophylaxis ordered? Yes Type of prophylaxis/treatment: KISHORE at 0719
[2017-05-27 08:00] VITALS: BP 140/92
[2017-05-27] MEDS ORDERED: TRAMADOL 50MG T50 MG PO (09:11)
[2017-05-27 09:17] VITALS: BP 140/92
[2017-05-27 09:21] VITALS: BP 140/92
--- NOTE | 2017-05-27 09:38 | Discharge Summary Standard ---
HP/DC combined ([facility]) Date of admission: 05/26/17 Chief complaint: right sided CP History: History of Present Illness: Mr. Luong is a 61 year old male with a history of COPD, Mycobacterium Avium Complex and recent right lobectomy who presented to the ER with right sided CP and 3 days of SOB. He had a RUL lobectomy 03/[address] Hand followed by evacuation of a large chest wall hematoma 03/31/17. 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 He was actually better until about 3 days ago. When the CP became worse he presented to the ER. CTA of the chest was negative for PE. When P02 was found to be low he was admitted for further evaluation and treatment. Past Medical History: Medical History: CAD? No Angina: No [place]: No Hypertension? No Hyperlipidemia? No CHF? No DVT? No PE? No COPD? Yes Asthma? No Anemia? No GERD? No Gastric ulcers? No GI Bleed? No Hernia? No Thyroid Problems? No Hypothyroidism? No CVA? No Seizures? No Diabetes? No Renal Insuffiency? No UTI? No Stones? No BPH? No GB Disease: No Nephritic Syndrome? No Asplenia? No Hepatitis? No Sickle Cell Disease? No Arthritis? No Migraines? No Cataracts? No Glaucoma? No MRSA? No HIV? No TB? No Anxiety? No Depression? No Cancer? No More? Yes Additional hx: MAC LUNG DISEASE Additional medical history: Medications: Ventolin 2 puffs qid Itraconazole 700mg bid Surgical history: Previous Surgery?Y BILATERAL KNEE UMBILICAL HERNIA RIGHT UPPER LOBECTOMY Allergies: Coded Allergies: No Known Allergies (02/04/17) Family History: Family history: Negative for: CAD, DM. Social History: Smoking Hx: Tobacco: No Smoker: Former Smoker Type: N/A Packs/day: 1 1/2 - 2 Packs Are you/the child exposed to second-hand smoke: No Alcohol: Alcohol: No Hx of Drug Use: Drug Use? No Review of Systems: Cardiovascular Positive for: chest pain. No: edema, palpitations. Respiratory Positive for: shortness of air, non-productive. No: hemoptysis, wheezing. GI No: GERD, abdominal pain, constipation, diarrhea, hematemeis, hematochezia, melena, nausea, vomitting. (male) No: frequency (dribbles at end of void). Neurological No: confusion, dizziness, headache, seizure, syncope. Musculoskeletal No: extremity pain, extremity swelling, joint pain, joint swelling. Vital signs: Laboratory Tests 05/27/17 0627: Sodium 142, Potassium 4.3, Chloride 108 H, Carbon Dioxide 27, BUN 13, Creatinine 0.9, Estimated Creat Clear 85, Estimated GFR (MDRD) 85, Glucose 99, Calcium 9.1, WBC 7.4, RBC 4.12 L, Hgb 11.7 L, Hct 37.4 L, MCV 90.9, RDW 13.7, Plt Count 272, MPV 7.5, Gran % 60.2, Gran # 4.4, Lymphocytes % 26.9, Monocytes % 6.4, Eosinophils % 6.0, Basophils % 0.6, Lymphocytes # 2.0, Monocytes # 0.5, Eosinophils # 0.4, Basophils # 0.0, PUBS MCHC 31.3 L, MCH 28.5 05/26/17 1844: ABG pH 7.42, ABG pCO2 (Temp Corrct 40.9, ABG pO2 (Temp Correct 54.9 L, ABG HCO3 25.8, ABG Total CO2 27.1 H, ABG O2 Sat (Calculated) 89.6 L, ABG Base Excess 1.3, Júnior Test Y, Blood Gas Comments R/R 05/26/17 1615: Lactic Acid 0.9 05/26/17 1530: Sodium 144, Potassium 4.0, Chloride 108 H, Carbon Dioxide 30, BUN 16, Creatinine 1.1, Estimated Creat Clear 73, Estimated GFR (MDRD) 68, Glucose 112 H, Calcium 8.8, Total Bilirubin 0.1 L, AST 13 L, ALT 13, Alkaline Phosphatase 69, Creatine Kinase 66, CK-MB (CK-2) Rel Index 0.8, CK and CKMB Interp < 0.5, Troponin I < 0.02, Total Protein 7.1, Albumin 3.3 L, Globulin 3.8 H, Albumin/ Globulin Ratio 0.9 L, WBC 7.9, RBC 4.05 L, Hgb 11.9 L, Hct 37.2 L, MCV 91.8, RDW 13.6, Plt Count 300, MPV 7.5, Gran % 63.0, Gran # 5.0, Lymphocytes % 24.3, Monocytes % 7.3, Eosinophils % 4.7, Basophils % 0.7, Lymphocytes # 1.9, Monocytes # 0.6, Eosinophils # 0.4, Basophils # 0.1, PUBS MCHC 31.9, MCH 29.3 Microbiology 05/26 1615 BLOOD: Anaerobic Blood Culture - RECD 05/26 1615 BLOOD: Aerobic Blood Culture - RECD Vital Signs Date Time Temp Pulse Resp B/P Pulse O2 O2 Flow FiO2 Ox Delivery Rate 05/27 921 97.7 69 22 140/92 05/27 0917 97.7 69 22 140/92 94 05/27 0800 97.7 69 22 140/92 94 ROOM AIR 05/27 0501 2 05/27 0430 98.1 63 18 130/83 97 ROOM AIR 05/27 0404 18 05/27 0230 2 05/27 0025 2 05/27 0025 97.7 64 18 139/84 94 ROOM AIR 05/26 2230 2 05/26 2131 18 05/26 2010 98.3 59 18 157/98 95 ROOM AIR 05/26 1929 59 05/26 192 98.3 59 18 157/98 05/26 1929 95 ROOM AIR 05/26 1855 57 16 162/97 94 2 05/26 1846 98.4 57 14 193/100 97 05/26 1755 57 14 193/100 97 2 05/26 1652 68 16 157/97 96 05/26 1521 98.4 68 20 189/98 96 Current Medications Ketorolac Tromethamine 0 .STK-MED ONE .ROUTE (DC) Ketorolac Tromethamine 15 MG Q6HP PRN IV Ketorolac Tromethamine 0 .STK-MED ONE .ROUTE (DC) Sodium Chloride 10 ML PRN PRN IV Iopamidol 60 ML ONCE ONE IV (DC) Sodium Chloride 20 ML ONCE ONE IV (DC) Sodium Chloride 20 ML ONCE ONE IV (DC) Sodium Chloride 10 ML PRN PRN IV (DC) Sodium Chloride 10 ML PRN PRN IV 05/26 1500 05/26 2300 05/27 0700 Intake Total 480 Output Total Balance 480 Intake, Oral 480 Patient 159 lb Weight Vital Signs Result Date Time Pulse Ox 96 05/26 1521 B/P 189/98 05/26 1521 Temp 98.4 05/26 152 Pulse 68 05/26 1521 Resp 20 05/26 152 O2 Flow Rate 2 05/26 1755 O2 Delivery ROOM AIR 05/26 1929 Physical Exam: Exam: General appearance: normal appearance, alert, no acute distress, thin Eyes: anicteric ENT: mucous membranes moist, pharynx normal Neck: no carotid bruit, full range of motion, lymphadenopathy (absent), thyroid (normal) Cardiovascular: regular rate & rhythm Respiratory: clear to auscultation (bilat anterior and posterior) ABD: non-distended, soft, no tenderness, no guarding, bowel sounds present Extremities: no peripheral edema, no calf tenderness Skin: well healed right posterior chest wall thorocotomy scar Neuro: alert, oriented, speech clear Lab data: Labs: Laboratory Tests 05/27/17 0627: Sodium 142, Potassium 4.3, Chloride 108 H, Carbon Dioxide 27, BUN 13, Creatinine 0.9, Estimated Creat Clear 85, Estimated GFR (MDRD) 85, Glucose 99, Calcium 9.1, WBC 7.4, RBC 4.12 L, Hgb 11.7 L, Hct 37.4 L, MCV 90.9, RDW 13.7, Plt Count 272, MPV 7.5, Gran % 60.2, Gran # 4.4, Lymphocytes % 26.9, Monocytes % 6.4, Eosinophils % 6.0, Basophils % 0.6, Lymphocytes # 2.0, Monocytes # 0.5, Eosinophils # 0.4, Basophils # 0.0, PUBS MCHC 31.3 L, MCH 28.5 05/26/17 1844: ABG pH 7.42, ABG pCO2 (Temp Corrct 40.9, ABG pO2 (Temp Correct 54.9 L, ABG HCO3 25.8, ABG Total CO2 27.1 H, ABG O2 Sat (Calculated) 89.6 L, ABG Base Excess 1.3, Júnior Test Y, Blood Gas Comments R/R 05/26/17 1615: Lactic Acid 0.9 05/26/17 1530: Sodium 144, Potassium 4.0, Chloride 108 H, Carbon Dioxide 30, BUN 16, Creatinine 1.1, Estimated Creat Clear 73, Estimated GFR (MDRD) 68, Glucose 112 H, Calcium 8.8, Total Bilirubin 0.1 L, AST 13 L, ALT 13, Alkaline Phosphatase 69, Creatine Kinase 66, CK-MB (CK-2) Rel Index 0.8, CK and CKMB Interp < 0.5, Troponin I < 0.02, Total Protein 7.1, Albumin 3.3 L, Globulin 3.8 H, Albumin/ Globulin Ratio 0.9 L, WBC 7.9, RBC 4.05 L, Hgb 11.9 L, Hct 37.2 L, MCV 91.8, RDW 13.6, Plt Count 300, MPV 7.5, Gran % 63.0, Gran # 5.0, Lymphocytes % 24.3, Monocytes % 7.3, Eosinophils % 4.7, Basophils % 0.7, Lymphocytes # 1.9, Monocytes # 0.6, Eosinophils # 0.4, Basophils # 0.1, PUBS MCHC 31.9, MCH 29.3 Microbiology 05/26 1615 BLOOD: Anaerobic Blood Culture - RECD 05/26 1615 BLOOD: Aerobic Blood Culture - RECD Radiology results: Results: 05/26/17 CTA of chest IMPRESSION: 1. Status post right upper lobectomy with postsurgical changes in the right upper chest. Soft tissue and fluid density is present. Cannot exclude the possibility of residual or recurrent neoplasm. Correlation with old studies are needed. 2. No evidence of acute pulmonary embolus. 3. Loculated subpulmonic and posterior fusion on the right. There is a prominent subpulmonic component. 3. Centrilobular emphysematous change with bullous changes. Diagnosis(es): 1. Abnormal CT scan, chest 2. Pleuritic chest pain 3. Histoplasma capsulatum infection Plan: Discharged to home with pain meds Course: Patient slept poorl overnight. Chest discomfort was better. He was not wearing his O2 with satisfactory O2 sats. He was anxious to go home. He has an appt with his surgical chest MD tomorrow and appt with Dr. Simons next week. He was discharged to home. Dr. Coyle prescribed pain med. Discharge medications: Start taking the following new medications: Tramadol Hcl (Tramadol 50MG) 50 MG TABLET 50 MILLIGRAM ORAL EVERY 4 HOURS NEEDED as needed for MODERATE PAIN Qty = 20 No Refills Disposition: Discharged to home in stable condition. Meds as per reconciliation sheet. FU with chest surgeon tomorrow and Dr. Simons next week. To continue with same diet and activity.
[2017-06-12] MEDS ORDERED: PERCOCET 5/3251 EACH PO (05:14)
[2017-06-12] MEDS ORDERED: PYRIDIUM200 M2 PO (08:14)
== END 2017-05-27 09:35 | disposition home or self-care (01) ==
LOC: ER 15:18 → 2ND 18:16 → ER 18:16 → 2ND 18:16
PROVIDERS: Emergency Medicine; Family Medicine
DX: R07.81 Pleurodynia (principal); R93.8 Abnormal findings on diagnostic imaging of other specified body structures; J44.9 Chronic obstructive pulmonary disease, unspecified; Z90.2 Acquired absence of lung [part of]; Z87.891 Personal history of nicotine dependence; Z00.01 Encounter for general adult medical examination with abnormal findings; B39.4 Histoplasmosis capsulati, unspecified
CPT/HCPCS: G0378; Q9967

== ENCOUNTER 2017-05-30 13:34 | Emergency (ER) | payer OTHER ==
[~2017-05-30] VITALS: Ht 177.8 cm; Wt 72.6 kg
[~2017-05-30 13:34] MED LIST: TRAMADOL 50MG T50 MG PO
--- NOTE | 2017-05-30 14:03 | Emergency Room Report ---
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 N Clinical Suspician of Infection? N Mental Status: 1 - Regular (Normal Baseline) Sepsis Risk:Low Sepsis Risk Have you (or family members/close friends) recently traveled outside the [place]? N If Yes, where/when: Have you had exposure to infectious disease within the past month? N TB? Other? Specify: Patient seen in this ED by this MD five days ago and admitted due to SOB, effusion, possible mass and abnormal ABG; he was subsequently admitted, then seen for follow up by Dr. Simons, his pulmnologist, as well as Dr. Hand at who performed thoracentesis two days ago. Has hx of KENDALL and R upper lobectomy. He denies fever. No hemoptysis. No calf pain or edema. Reports edema to posterior/scapular area on right, 'felt like a football last night" but better today, having some pleuritic right sided chest pain earlier today, worse when supine. ALLERGIES Coded Allergies: No Known Allergies (02/04/17) Home Medications Active Scripts Tramadol Hcl (Tramadol 50MG) 50 MG PO Q4HP PRN MODERATE PAIN #20 TABLET Prov: 05/27/17 History Medical History General CAD? No Angina: No [place]: No Hypertension? No Hyperlipidemia? No CHF? No DVT? No PE? No COPD? Yes Asthma? No Anemia? No GERD? No Gastric ulcers? No GI Bleed? No Hernia? No Thyroid Problems? No Hypothyroidism? No CVA? No Seizures? No Diabetes? No Renal Insuffiency? No End Stage Renal Disease? No UTI? No Stones? No BPH? No GB Disease: No Nephritic Syndrome? No Asplenia? No Hepatitis? No Sickle Cell Disease? No Arthritis? No Migraines? No Cataracts? No Glaucoma? No MRSA? No HIV? No TB? No Anxiety? No Depression? No Cancer? No More? Yes Additional hx: MAC LUNG DISEASE Immunization Hx DT/Tetanus 1-4 Years Ago Flu Refused Pneumonia Refuses Surgical Hx Previous Surgery?Y BILATERAL KNEE UMBILICAL HERNIA RIGHT UPPER LOBECTOMY Family History Family Hx Diabetes No CAD No Hypertension No Hyperlipidemia Yes Cancer No TB No Social History Smoking Hx Smoker: Former Smoker Tobacco: No Packs/day 1 1/2 - 2 Packs Alcohol Alcohol: No Review of Systems All Other Systems Reviewed and Negative Respiratory see HPI Physical Exam Vital Signs Vital Signs Date Time Temp Pulse Resp B/P Pulse O2 O2 Flow FiO2 Ox Delivery Rate 05/30 1632 65 16 138/80 98 05/30 1337 98.2 68 16 148/89 98 General Appearance normal appearance, WD/WN, no apparent distress Eye Exam - bilateral eye normal exam, bilateral eye PERRL, bilateral eye EOMI Neck normal inspection, non-tender, supple, full range of motion Respiratory Status Yes: trachea midline, chest symmetrical, non tender chest. No: respiratory distress, tender on palpation, use of accessory muscles, pain on inspiration, pain on expiration, productive cough, non productive cough (edema R scap;no subcutaneousai). Lung Sounds left: normal breath sounds, lungs clear (hx right upper lobectomy). right: decreased breath sounds. Cardiovascular normal exam, regular rate/rhythm, no peripheral edema, no gallop, no JVD, no murmur, no rub, normal peripheral pulses Gastrointestinal normal bowel sounds, normal exam, non tender, soft, no organomegaly, no pulsatile mass, guarding, no guarding, no rebound Extremities non-tender, normal range of motion, normal inspection, normal capillary refill, no calf tenderness, no pedal edema Strength 5 Upper Ext (L), 5 Upper Ext (R), 5 Lower Ext (L), 5 Lower Ext (R) Neurologic alert, normal exam, no motor/sensory deficits, oriented x 3 Medical Decision Making LABS/Meds/Orders Pt receiving controlled substance in ED? No Results/Orders Laboratory Tests 05/30/17 1405: Sodium 138, Potassium 4.2, Chloride 103, Carbon Dioxide 27, BUN 10, Creatinine 1.0, Estimated Creat Clear 78, Estimated GFR (MDRD) 75, Glucose 106, Calcium 9.2 , Total Bilirubin 0.4, AST 11 L, ALT 15, Alkaline Phosphatase 68, Total Protein 7.2, Albumin 3.0 L, Globulin 4.2 H, Albumin/Globulin Ratio 0.7 L, WBC 10.0, RBC 3.65 L, Hgb 10.2 L, Hct 33.2 L, MCV 91.2, RDW 13.4, Plt Count 286, MPV 8.1, Gran % 69.0, Gran # 6.9, Lymphocytes % 19.1, Monocytes % 6.8, Eosinophils % 4.5, Basophils % 0.5, Lymphocytes # 1.9, Monocytes # 0.7, Eosinophils # 0.5 H, Basophils # 0.1, PUBS MCHC 30.7 L, MCH 28.0 Current Medication Orders Sig/Campbell Start time Last Medication Dose Route Stop Time Status Admin Sodium Chloride 10 ML PRN PRN 05/30 1400 AC IV 05/31 1355 Orders Procedure Date/time Status DIET-NOTHING BY MOUTH 05/30 D Active CTA-CHEST 05/[address] CHEST W/PE PROTOCOL REQ 05/30 135 Complete IV SALINE LOCK 05/30 135 Active CBC WITH AUTO DIFF 05/30 135 Complete CHEM 12 PROFILE 05/30 135 Complete ARTERIAL BLOOD GAS REQUEST 05/30 135 Active XRAY/CT/US XRAY/CT/US CT chest CT interpretation by reviewed by me, discussed w/radiologist Time results known: 1704 (neg PE neg PTX) CT Results abnormal, neg PE; only somewhat diminished fluid compared to prior ; resolving hematoma, right posterior; neg PTX; d/w radiologist Progress ED Progress Notes 1 Date 05/30/17 Time 1422 Comment RT states patient declining ABG at this time. ED Progress Notes 2 Date 05/30/17 Time 1706 Comment Pt ambulatory, no tachypnea, NAD. ED Progress Notes 3 Date 05/30/17 Time 171 Comment Stable at d/c; agrees very close f/u with Dr. Simons Departure Departure Time of Disposition 1712 Disposition DC Home or Self Care(routine) Clinical Impression Primary Impression: Pleuritic chest pain Ruled Out Impressions: Pneumothorax after biopsy Condition STABLE Referrals KENNY FELTON,DARRELL Youngblood Patient Instructions Thoracentesis Additional Instructions Please call Dr. Simons for very close follow up as you will likely need fluid drawn off sooner than anticipated. No collapse of lung and no clot in lung today. Discharge Counseling Counseled pt/family regarding diagnosis, test results, home care, follow up needs ED Critical Care Critical Care No at [id number]
--- OUTSIDE RECORDS SUMMARY | 2017-05-30 14:05 | External Medical Summary Rpt | CCD ---
Author Author , RADHA GARCIA Address Unknown Phone [email or web address] Purpose Continuity of Care Document - 03-19-2017 [...] D72.829 Elevated white blood cell count, unspecified [id number] J18.1 Lobar pneumonia, unspecified organism J43.2 Centrilobul ar emphysema J69.0 Pneumonitis due to inhalation of food and vomit R05 Cough R06.02 Shortness of breath R07.81 PLEURODYNIA R59.0 Localized enlarged lymph nodes R61 Generalized hyperhidros is R63.4 Abnormal weight loss R91.1 Solitary pulmonary nodule R91.8 Other nonspecific abnormal finding of lung field R93.8 Abnormal findings on diagnostic imaging of other specified body structures Results Labs Lab Lab Date Result Refere Interp Status Commen Order Detail nces retati t Range on Bacteria Fld Aerobe Cult (05-28-2017 16:16) SPECIME RCVD complet N 017 ORDER ed CONTAIN 16:16 PROCESS ER ED. L INFO: Bacteri NG013 complet a XXX 017 NO ed Anaerob 16:16 GROWTH e+Aerob IN <13 e Cult HOURS. L Mycobacterium XXX Ql Cult (05-28-2017 16:16) SPECIME RCVD complet N 017 ORDER ed CONTAIN 16:16 PROCESS ER ED. L INFO: SPECIME SUBM complet N 017 MODE OF ed CONTAIN 16:16 ER SUBMISS INFO: ION: L SPECIME BLOODY complet N 017 BLOODY ed CONTAIN 16:16 L ER INFO: SPECIME FLD complet N 017 FLUID L ed CONTAIN 16:16 ER INFO: CAMERON Prep XXX (05-28-2017 16:16) CAMERON [id number] complet 017 03 ed 16:16 sample: fungus not isolate d (findin g) SCT NOFEO NO FUNGAL ELEMENT S OBSERVE D L CRP SerPl-mCnc (05-28-2017 10:44) CRP 2.8 0-0.9 complet SerPl-m 017 mg/dL ed Cnc 10:44 ESR Bld Qn (05-28-2017 10:41) ESR Bld 55 0-11 complet Qn 017 mm/hr ed 10:41 CBC w auto diff (05-27-2017 06:27) Automat = 0.0 0-0.2 complet ed 017 K/MM3 ed blood 06:27 basophi l count (count/ vo Baso % = 0.6 % 0.1-2.0 complet 017 ed 06:27 Automat = 0.4 0.0-0.4 complet ed 017 K/mm3 ed blood 06:27 eosinop hil count Automat = 6.0 % 0.1-12. complet ed 017 0 ed blood 06:27 eosinop hils/10 0 leukocy t Blood = 4.4 1.3-8.0 complet granulo 017 K/mm3 ed cytes 06:27 automat ed count (numb Granulo = 60.2 37.0-80 complet cyte 017 % .0 ed percent 06:27 age Blood = 37.4 42.0-52 complet hematoc 017 % .0 ed rit 06:27 (volume fractio n) Blood = 11.7 14.1-18 complet hemoglo 017 g/dL .0 ed bin 06:27 measure ment (mass/v olum Absolut = 2.0 0.7-4.5 complet e 017 K/mm3 ed lymphoc 06:27 yte count Lymphoc = 26.9 10-50 complet yte 017 % ed count, 06:27 blood, automat ed Mean = 28.5 27-31.2 complet corpusc 017 pg ed ular 06:27 hemoglo bin (MCH) determ Automat = 31.3 31.8-35 complet ed 017 g/dl .4 ed erythro 06:27 cyte mean corpusc ular h Automat = 90.9 82.2-97 complet ed 017 fl .8 ed erythro 06:27 cyte mean corpusc ular v Absolut = 0.5 0.1-1.0 complet e 017 K/mm3 ed monocyt 06:27 e count [place] % = 6.4 % 1.7-9.3 complet 017 ed 06:27 Automat = 7.5 7.4-10. complet ed 017 fl 4 ed blood 06:27 platele t mean volume tita Blood = 272 142-424 complet platele 017 K/mm3 ed t count 06:27 Red = 4.12 4.6-6.2 complet blood 017 M/mm3 ed cell 06:27 count Automat = 13.7 11.5-17 complet ed 017 % .5 ed erythro 06:27 cyte distrib ution width Blood = 7.4 4.8-10. complet leukocy 017 K/MM3 8 ed julee 06:27 count (number /volume ) Basic metabolic panel (05-27-2017 06:27) Serum 2 = 13 7-18 complet or 017 mg/dL ed plasma 06:27 urea nitroge n measure men Serum = 9.1 8.5-10. complet or 017 mg/dL 1 ed plasma 06:27 calcium measure ment (mas Serum = 108 98-107 complet or 017 mmoL/L ed plasma 06:27 chlorid e measure ment (mo Carbon = 27 21.0-32 complet dioxide 017 mmoL/L .0 ed 06:27 measure ment Serum = 0.9 0.70-1. complet or 017 mg/dL 30 ed plasma 06:27 creatin ine measure ment ( Estimat = 85 50-200 complet ion of 017 ML/MIN ed creatin 06:27 ine renal clearan ce Estimat = 85 >60 complet ed 017 ML/MIN ed glomeru 06:27 lar filtrat ion rate (GF Serum = 99 74-106 complet or 017 mg/dL ed plasma 06:27 glucose measure ment (mas Serum = 4.3 3.5-5.1 complet potassi 017 mmoL/L ed um 06:27 measure ment Serum = 142 136-145 complet sodium 017 mmoL/L ed measure 06:27 ment Arterial blood gas (05-26-2017 18:44) Arteria = 1.3 -2.4-+2 complet l blood 017 MMOL/L .3 ed base 18:44 excess determi nation Júnior's Y Y L complet test 017 ed before 18:44 arteria l blood gas Arteria = 25.8 22.0-26 complet l blood 017 MMOL/L .0 ed 18:44 [place]icar[place] b[place] measure ment ( Arteria = R/A complet l blood 017 ed total 18:44 oxygen content mauro Arteria = 40.9 35.0-45 complet l blood 017 MMHG .0 ed 18:44 partial pressur e of carbo Arteria = 7.42 7.35-7. complet l blood 017 MMOL/L 45 ed pH 18:44 measure ment Arteria = 54.9 80-100 complet l whole 017 MMHG ed blood 18:44 PO2 at POC Arteria = 89.6 90-100 complet l blood 017 % ed oxygen 18:44 saturat ion calcula SOURCE R/R complet 017 ed 18:44 Arteria = 27.1 23-27 complet l blood 017 MMOL/L ed carbon 18:44 dioxide , total tita Blood lactic acid measurement (moles/vol (05-26-2017 16:15) Blood = 0.9 0.4-2.0 complet lactic 017 mmol/L ed acid 16:15 measure ment (moles/ vol CBC w auto diff (05-26-2017 15:30) Automat [...] 017 K/mm3 ed monocyt 15:30 e count [place] % = 7.3 % 1.7-9.3 complet 017 [...] glomeru 15:30 lar filtrat ion rate (GF Serum = 3.8 1.3-3.2 complet globuli 017 [...] 017 U/L ed ser/mis 15:30 s Protein 12-05-2 = 7.1 6.4-8.2 complet total 017 gm/dL ed ser/mis 15:30 s Vancomycin Peak SerPl-mCnc (04-03-2017 12:07) Vancomy 30.8 20.0-40 complet korin 017 ug/mL .0 ed Peak 12:07 SerPl-m Cnc Vancomycin Trough SerPl-mCnc (04-03-2017 07:59) Vancomy 17.9 10.0-20 complet korin 017 ug/mL .0 [...] 17:46 Cnc Vancomycin SerPl-mCnc (04-01-2017 04:17) Vancomy 04-01- 21.1 0-40.0 complet korin 017 ug/mL ed SerPl-m 04:17 Cnc Magnesium SerPl-mCnc (04-01-2017 04:17) Magnesi 2.0 1.9-2.4 complet um 017 mg/dL ed SerPl-m 04:17 Cnc Phosphate SerPl-mCnc (04-01-2017 04:17) Phospha 3.7 2.5-4.5 complet te 017 mg/dL ed SerPl-m 04:17 Cnc MDRO Wnd (03-31-2017 22:09) SPECIME SWAB complet N TRANSPO ed CONTAIN 22:09 RT ER SWAB(S) INFO: L CC XXX NOTAP complet VC-aCnc 017 NOT ed 22:09 APPLICA BLE L Bacteri [id number] complet a XXX 017 06 No ed Anaerob 22:09 growth e+Aerob (qualif e Cult ier value) SCT NG1 NO GROWTH DAY 1. L Bacteria XXX Anaerobe+Aerobe Cult (03-31-2017 22:09) Bacteri [id number] complet a XXX 017 06 No ed Anaerob 22:09 growth e+Aerob (qualif e Cult ier value) SCT NGB6 NO GROWTH DAY 5. L SPECIME [id number] complet N 017 03 ed CONTAIN 22:09 blood ER volume INFO: estimat ion (proced ure) SCT BVA BLOOD CULTURE VOLUME ACCEPTA BLE L SPECIME FANB complet N 017 AEROBIC ed CONTAIN 22:09 FAN ER AND INFO: ANAEROB IC BLOOD CULTURE BOTTLES L Magnesium SerPl-mCnc (03-31-2017 22:09) Magnesi 2.0 [...] XXX Ql PCR (03-31-2017 22:09) MRSA BY [id number] complet PCR 017 05 ed 22:09 analyte not detecte d SCT NOMRSA NEGATIV E for MRSA DNA by PCR, MRSA coloniz ation unlikel y. L MOLECUL Nares complet AR SPEC 017 (NARES) ed 22:09 DESCRIP TION MRSA [id number] NEGATIV complet PCR 017 05 E for [...] ANAEROB IC BLOOD CULTURE BOTTLES L SPECIME [id number] complet N 017 03 ed CONTAIN 22:09 blood ER volume INFO: estimat ion (proced ure) SCT BVA BLOOD CULTURE VOLUME ACCEPTA BLE L Bacteri [id number] complet a XXX 017 06 No ed Anaerob 22:09 growth e+Aerob (qualif e Cult ier value) SCT [id number] NO GROWTH IN <23 HOURS. L Magnesium [...] 03:43 Cnc Phosphate SerPl-mCnc (03-26-2017 03:43) Phospha 03-26-2 4.5 2.5-4.5 complet te 017 mg/dL ed SerPl-m 03:43 Cnc Ca-I SerPl ISE-sCnc (03-25-2017 00:49) Ca-I --2 4.4 4.6-5.1 complet SerPl 017 mg/dL ed ISE-sCn 00:49 c Magnesium SerPl-mCnc (03-25-2017 00:49) Magnesi 03-25-2 2.1 1.9-2.4 complet um 017 mg/dL ed SerPl-m 00:49 Cnc Phosphate SerPl-mCnc (03-25-2017 00:49) Phospha 03-25-2 4.0 2.5-4.5 complet te 017 mg/dL ed SerPl-m 00:49 Cnc Ca-I SerPl ISE-sCnc (03-24-2017 03:16) Ca-I 03-24-2 4.6 4.6-5.1 complet SerPl 017 mg/dL ed ISE-sCn 03:16 c Magnesium SerPl-mCnc (03-24-2017 03:16) Magnesi 03-24-2 2.2 1.9-2.4 complet um 017 mg/dL ed SerPl-m 03:16 Cnc Phosphate SerPl-mCnc (03-24-2017 03:16) Phospha 03-24-2 4.0 2.5-4.5 complet te 017 mg/dL ed SerPl-m 03:16 Cnc Vancomycin SerPl-mCnc (03-24-2017 03:16) Vancomy 03-24-2 20.5 0-40.0 complet korin 017 ug/mL ed SerPl-m 03:16 Cnc Magnesium SerPl-mCnc (03-24-2017 03:16) Magnesi 03-24-2 TCON 1.9-2.4 complet um 017 Multipl ed SerPl-m 03:16 e SCM Cnc orders. Tests consoli dated. L mg/dL Phosphate SerPl-mCnc (03-24-2017 03:16) Phospha 03-24-2 TCON 2.5-4.5 complet te 017 Multipl ed SerPl-m 03:16 e SCM Cnc orders. Tests consoli dated. L mg/dL Vancomycin SerPl-mCnc (03-23-2017 23:23) Vancomy 11.5 0-40.0 complet korin 017 ug/mL ed SerPl-m 23:23 Cnc MDRO Wnd (03-23-2017 22:17) CC XXX NOTAP complet VC-aCnc 017 NOT ed 22:17 APPLICA BLE L Bacteri [id number] complet a XXX 017 06 No ed [...] MODERAT ed 17:02 E GROWTH L Bacteri [id number] complet a XXX 017 8 Gram ed Anaerob 17:02 negativ e+Aerob e e Cult bacillu s (organi sm) SCT GNR GRAM NEGATIV E SAYDA L Bacteri C48 ... complet a XXX 017 IF ed Anaerob 17:02 WORKUP e+Aerob REQUIRE e Cult D, CALL BACT ([id number]) WITHIN 48 HRS. L Magnesium SerPl-mCnc (03-21-2017 [...] NOT ed 15:35 APPLICA BLE L Bacteri [id number] complet a XXX 017 06 No ed [...] c CAMERON Prep XXX (03-19-2017 11:11) CAMERON [id number] complet 017 03 ed 11:11 sample: fungus not isolate d (findin g) SCT NOFEO NO FUNGAL ELEMENT S OBSERVE D L Fungus Tiss Cult (03-19-2017 11:11) Bacteri [id number] complet a XXX 017 03 ed Anaerob 11:11 sample: e+Aerob fungus e Cult not isolate d (findin g) SCT NF42 NO FUNGAL GROWTH AT 6 WEEKS L Bacteri [id number] complet a XXX 017 03 ed Anaerob 11:11 sample: e+Aerob fungus e Cult not isolate d (findin g) SCT NF21 NO FUNGAL GROWTH AT 3 WEEKS L SPECIME RCVD complet N 017 ORDER ed CONTAIN 11:11 PROCESS ER ED. L INFO: Bacteria Wnd Cult (03-19-2017 11:11) CC XXX NOTAP complet VC-aCnc 017 NOT ed 11:11 APPLICA BLE L Bacteri [id number] complet a XXX 017 06 No ed Anaerob 11:11 growth e+Aerob (qualif e Cult ier value) SCT NG4 NO GROWTH DAY 4. L Bacteria XXX Anaerobe Cult (03-19-2017 11:11) Bacteri [id number] complet a XXX 017 06 No ed Anaerob 11:11 growth e+Aerob (qualif e Cult ier value) SCT NG4 NO GROWTH DAY 4. L Acid fast Stn XXX Ql (03-19-2017 10:56) ACID [id number] complet FAST 017 8 not ed STAIN 10:56 seen (qualif ier value) SCT NOAFB NO AFB SEEN L Mycobacterium XXX Ql Cult (03-19-2017 10:56) Bacteri [id number] complet a XXX 017 00 not ed Anaerob 10:56 isolate e+Aerob d e Cult (qualif ier value) SCT NM42 NO ACID FAST BACILLI ISOLATE D AT 6 WEEKS L Bacteri [id number] complet a XXX 017 00 not ed [...] INFO: Fungus Tiss Cult (03-19-2017 10:56) Bacteri NASF NO complet a XXX 017 ed Anaerob 10:56 ADDITIO e+Aerob NAL e Cult SIGNIFI CANT FUNGAL GROWTH AT 6 WEEKS L Bacteri [id number] complet a XXX 017 3 ed Anaerob 10:56 Cryptoc e+Aerob occus e Cult neoform ans (organi sm) SCT CRYN CRYPTOC OCCUS NEOFORM ANS L SPECIME RCVD complet N 017 ORDER ed CONTAIN 10:56 PROCESS ER ED. L INFO: CAMERON Prep XXX (03-19-2017 10:56) CAMERON [id number] complet 017 03 ed 10:56 sample: fungus not isolate d (findin g) SCT NOFEO NO FUNGAL ELEMENT S OBSERVE D L Bacteria Tiss Cult (03-19-2017 10:56) CC XXX NOTAP complet VC-aCnc 017 NOT ed 10:56 APPLICA BLE L Bacteri [id number] complet a XXX 017 06 No ed Anaerob 10:56 growth e+Aerob (qualif e Cult ier value) SCT NG4 NO GROWTH DAY 4. L Bacteria XXX Anaerobe Cult (03-19-2017 10:56) Bacteri [id number] complet a XXX 017 06 No ed Anaerob 10:56 growth e+Aerob (qualif e Cult ier value) SCT NG4 NO GROWTH DAY 4. L Acid fast Stn XXX Ql (03-19-2017 09:58) ACID [id number] complet FAST 017 8 not ed STAIN 09:58 seen (qualif ier value) SCT NOAFB NO AFB SEEN L Mycobacterium XXX Ql Cult (03-19-2017 09:58) Bacteri [id number] complet a XXX 017 00 not ed Anaerob 09:58 isolate e+Aerob d e Cult (qualif ier value) SCT NM42 NO ACID FAST BACILLI ISOLATE D AT 6 WEEKS L Bacteri [id number] complet a XXX 017 00 not ed [...] 09:58 PROCESS ER ED. L INFO: Bacteri [id number] complet a XXX 017 03 ed Anaerob 09:58 sample: e+Aerob fungus e Cult not isolate d (findin g) SCT NF42 NO FUNGAL GROWTH AT 6 WEEKS L Bacteri [id number] complet a XXX 017 03 ed Anaerob 09:58 sample: e+Aerob fungus e Cult not isolate d (findin g) SCT NF21 NO FUNGAL GROWTH AT 3 WEEKS L CAMERON Prep XXX (03-19-2017 09:58) CAMERON [id number] complet 017 03 ed 09:58 sample: fungus not isolate d (findin g) SCT NOFEO NO FUNGAL ELEMENT S OBSERVE D L Bacteria Tiss Cult (03-19-2017 09:58) CC XXX NOTAP complet VC-aCnc 017 NOT ed 09:58 APPLICA BLE L Bacteri [id number] complet a XXX 017 06 No ed Anaerob 09:58 growth e+Aerob (qualif e Cult ier value) SCT NG4 NO GROWTH DAY 4. L Bacteria XXX Anaerobe Cult (03-19-2017 09:58) Bacteri [id number] complet a XXX 017 08 ed Anaerob 09:58 Staphyl e+Aerob ococcus e Cult , coagula se negativ e (organi sm) SCT SCN COAGULA SE NEGATIV E STAPHYL OCOCCUS SPECIES L Bacteri C48 ... complet a XXX 017 IF ed Anaerob 09:58 WORKUP e+Aerob REQUIRE e Cult D, CALL BACT ([id number]) WITHIN 48 HRS. L Chloride Bld-sCnc (03-19-2017 09:10) Chlorid 110 101-108 complet e 017 mmol/L ed Bld-sCn 09:10 c
--- OUTSIDE RECORDS SUMMARY | 2017-05-30 14:05 | External Medical Summary Rpt | CCD ---
Demographics Home Phone Preferred Language Albanian Marital Status Unknown Latter-Day Affiliation Unknown Race Unknown Ethnic Group Unknown Author Author , RADHA GARCIA Address Unknown Phone [email or web address] Immunization Name Date Rout CVX Reac Dose Comm Prov Is Faci e tion ent ider Refu lity Give sed n Tdap 07-1 Intr 115 999 Hist EWA No EWA , 6-20 amus oric LO LO Adso 16 cula al rbed r Info rmat ion - Sour ce Unsp ecif ied
--- OUTSIDE RECORDS SUMMARY | 2017-05-30 14:05 | External Medical Summary Rpt | CCD ---
Author Author , RADHA GARCIA Address Unknown Phone [email or web address] Purpose Continuity of Care Document - 03-19-2017 [...] D72.829 Elevated white blood cell count, unspecified [id number] J18.1 Lobar pneumonia, unspecified organism J43.2 Centrilobul [...] INFO: CAMERON Prep XXX (05-28-2017 16:16) CAMERON [id number] complet 017 03 ed 16:16 sample: fungus [...] 017 K/mm3 ed monocyt 06:27 e count [place] % = 6.4 % 1.7-9.3 complet 017 [...] 017 K/mm3 ed monocyt 15:30 e count [place] % = 7.3 % 1.7-9.3 complet 017 [...] NOT ed 22:09 APPLICA BLE L Bacteri [id number] complet a XXX 017 06 No ed Anaerob 22:09 growth e+Aerob (qualif e Cult ier value) SCT NG1 NO GROWTH DAY 1. L Bacteria XXX Anaerobe+Aerobe Cult (03-31-2017 22:09) Bacteri [id number] complet a XXX 017 06 No ed Anaerob 22:09 growth e+Aerob (qualif e Cult ier value) SCT NGB6 NO GROWTH DAY 5. L SPECIME [id number] complet N 017 03 ed CONTAIN 22:09 [...] XXX Ql PCR (03-31-2017 22:09) MRSA BY [id number] complet PCR 017 05 ed 22:09 analyte not detecte d SCT NOMRSA NEGATIV E for MRSA DNA by PCR, MRSA coloniz ation unlikel y. L MOLECUL Nares complet AR SPEC 017 (NARES) ed 22:09 DESCRIP TION MRSA [id number] NEGATIV complet PCR 017 05 E for [...] ANAEROB IC BLOOD CULTURE BOTTLES L SPECIME [id number] complet N 017 03 ed CONTAIN 22:09 blood ER volume INFO: estimat ion (proced ure) SCT BVA BLOOD CULTURE VOLUME ACCEPTA BLE L Bacteri [id number] complet a XXX 017 06 No ed Anaerob 22:09 growth e+Aerob (qualif e Cult ier value) SCT [id number] NO GROWTH IN <23 HOURS. L Magnesium [...] NOT ed 22:17 APPLICA BLE L Bacteri [id number] complet a XXX 017 06 No ed [...] MODERAT ed 17:02 E GROWTH L Bacteri [id number] complet a XXX 017 8 Gram ed Anaerob 17:02 negativ e+Aerob e e Cult bacillu s (organi sm) SCT GNR GRAM NEGATIV E SAYDA L Bacteri C48 ... complet a XXX 017 IF ed Anaerob 17:02 WORKUP e+Aerob REQUIRE e Cult D, CALL BACT ([id number]) WITHIN 48 HRS. L Magnesium SerPl-mCnc (03-21-2017 [...] NOT ed 15:35 APPLICA BLE L Bacteri [id number] complet a XXX 017 06 No ed [...] c CAMERON Prep XXX (03-19-2017 11:11) CAMERON [id number] complet 017 03 ed 11:11 sample: fungus not isolate d (findin g) SCT NOFEO NO FUNGAL ELEMENT S OBSERVE D L Fungus Tiss Cult (03-19-2017 11:11) Bacteri [id number] complet a XXX 017 03 ed Anaerob 11:11 sample: e+Aerob fungus e Cult not isolate d (findin g) SCT NF42 NO FUNGAL GROWTH AT 6 WEEKS L Bacteri [id number] complet a XXX 017 03 ed Anaerob 11:11 sample: e+Aerob fungus e Cult not isolate d (findin g) SCT NF21 NO FUNGAL GROWTH AT 3 WEEKS L SPECIME RCVD complet N 017 ORDER ed CONTAIN 11:11 PROCESS ER ED. L INFO: Bacteria Wnd Cult (03-19-2017 11:11) CC XXX NOTAP complet VC-aCnc 017 NOT ed 11:11 APPLICA BLE L Bacteri [id number] complet a XXX 017 06 No ed Anaerob 11:11 growth e+Aerob (qualif e Cult ier value) SCT NG4 NO GROWTH DAY 4. L Bacteria XXX Anaerobe Cult (03-19-2017 11:11) Bacteri [id number] complet a XXX 017 06 No ed Anaerob 11:11 growth e+Aerob (qualif e Cult ier value) SCT NG4 NO GROWTH DAY 4. L Acid fast Stn XXX Ql (03-19-2017 10:56) ACID [id number] complet FAST 017 8 not ed STAIN 10:56 seen (qualif ier value) SCT NOAFB NO AFB SEEN L Mycobacterium XXX Ql Cult (03-19-2017 10:56) Bacteri [id number] complet a XXX 017 00 not ed Anaerob 10:56 isolate e+Aerob d e Cult (qualif ier value) SCT NM42 NO ACID FAST BACILLI ISOLATE D AT 6 WEEKS L Bacteri [id number] complet a XXX 017 00 not ed [...] FUNGAL GROWTH AT 6 WEEKS L Bacteri [id number] complet a XXX 017 3 ed Anaerob 10:56 Cryptoc e+Aerob occus e Cult neoform ans (organi sm) SCT CRYN CRYPTOC OCCUS NEOFORM ANS L SPECIME RCVD complet N 017 ORDER ed CONTAIN 10:56 PROCESS ER ED. L INFO: CAMERON Prep XXX (03-19-2017 10:56) CAMERON [id number] complet 017 03 ed 10:56 sample: fungus not isolate d (findin g) SCT NOFEO NO FUNGAL ELEMENT S OBSERVE D L Bacteria Tiss Cult (03-19-2017 10:56) CC XXX NOTAP complet VC-aCnc 017 NOT ed 10:56 APPLICA BLE L Bacteri [id number] complet a XXX 017 06 No ed Anaerob 10:56 growth e+Aerob (qualif e Cult ier value) SCT NG4 NO GROWTH DAY 4. L Bacteria XXX Anaerobe Cult (03-19-2017 10:56) Bacteri [id number] complet a XXX 017 06 No ed Anaerob 10:56 growth e+Aerob (qualif e Cult ier value) SCT NG4 NO GROWTH DAY 4. L Acid fast Stn XXX Ql (03-19-2017 09:58) ACID [id number] complet FAST 017 8 not ed STAIN 09:58 seen (qualif ier value) SCT NOAFB NO AFB SEEN L Mycobacterium XXX Ql Cult (03-19-2017 09:58) Bacteri [id number] complet a XXX 017 00 not ed Anaerob 09:58 isolate e+Aerob d e Cult (qualif ier value) SCT NM42 NO ACID FAST BACILLI ISOLATE D AT 6 WEEKS L Bacteri [id number] complet a XXX 017 00 not ed [...] 09:58 PROCESS ER ED. L INFO: Bacteri [id number] complet a XXX 017 03 ed Anaerob 09:58 sample: e+Aerob fungus e Cult not isolate d (findin g) SCT NF42 NO FUNGAL GROWTH AT 6 WEEKS L Bacteri [id number] complet a XXX 017 03 ed Anaerob 09:58 sample: e+Aerob fungus e Cult not isolate d (findin g) SCT NF21 NO FUNGAL GROWTH AT 3 WEEKS L CAMERON Prep XXX (03-19-2017 09:58) CAMERON [id number] complet 017 03 ed 09:58 sample: fungus not isolate d (findin g) SCT NOFEO NO FUNGAL ELEMENT S OBSERVE D L Bacteria Tiss Cult (03-19-2017 09:58) CC XXX NOTAP complet VC-aCnc 017 NOT ed 09:58 APPLICA BLE L Bacteri [id number] complet a XXX 017 06 No ed Anaerob 09:58 growth e+Aerob (qualif e Cult ier value) SCT NG4 NO GROWTH DAY 4. L Bacteria XXX Anaerobe Cult (03-19-2017 09:58) Bacteri [id number] complet a XXX 017 08 ed Anaerob 09:58 Staphyl e+Aerob ococcus e Cult , coagula se negativ e (organi sm) SCT SCN COAGULA SE NEGATIV E STAPHYL OCOCCUS SPECIES L Bacteri C48 ... complet a XXX 017 IF ed Anaerob 09:58 WORKUP e+Aerob REQUIRE e Cult D, CALL BACT ([id number]) WITHIN 48 HRS. L Chloride Bld-sCnc (03-19-2017 09:10) Chlorid 110 101-108 complet e 017 mmol/L ed Bld-sCn 09:10 c
--- OUTSIDE RECORDS SUMMARY | 2017-05-30 14:05 | External Medical Summary Rpt | CCD ---
Demographics Home Phone Preferred Language Zimbabwean Marital Status Unknown Caodaism Affiliation Unknown Race Unknown Ethnic Group Unknown Author Author , RADHA GARCIA Address Unknown Phone [email or web address] Immunization Name Date Rout CVX Reac Dose Comm Prov Is Faci e tion ent ider Refu lity Give sed n Tdap 07-1 Intr 115 999 Hist EWA No EWA , 6-20 amus oric LO LO Adso 16 cula al rbed r Info rmat ion - Sour ce Unsp ecif ied
[2017-05-30 14:18] LABS: LYMPH # 1.9 K/mm3 (0.7-4.5); LYMPH % 19.1 % (10-50)
[2017-05-30 14:30] LABS: HEMOGLOBIN 10.2 g/dL (14.1-18.0)
[2017-05-30 17:25] VITALS: BP 137/70
--- NOTE | 2017-05-31 08:07 | RADIOLOGY REPORT PS360 ---
CTA -CHEST COMPARISON: CT angiogram of the chest 05/26/2017 HISTORY: Chest pain on inspiration, interval thoracentesis since the previous exam TECHNIQUE: Altered axial scans obtained from the thoracic inlet the hemidiaphragms and were performed with IV contrast. Sagittal coronal reformats were evaluated as well. FINDINGS: Prominent postsurgical changes are seen in the right hemithorax as described previously in this patient with history of previous lobectomy. There is a large right pleural effusion some of which is loculated primarily to right lung base and even though there is a history of recent thoracentesis the amount of pleural fluid appears be basically unchanged from the previous study. There is no pneumothorax. There is an oval area of hypodensity in the right posterior lateral chest wall chest beneath the latissimus dorsi muscle and just superficial to the rib cage. The appearance suggests a evolving hematoma and it measures 7.4 x 2.3 cm in size. IMPRESSION: Prominent postsurgical changes right hemithorax which have been described previously persistent large right pleural effusion some of which appears be loculated but basely unchanged in size from the previous study in the thoracentesis was performed. As mentioned appears be a hematoma in the right posterior lateral chest wall presenting secondary to the recent procedure.
[2017-06-12] MEDS ORDERED: PERCOCET 5/3251 EACH PO (05:14)
[2017-06-12] MEDS ORDERED: PYRIDIUM200 M2 PO (08:14)
== END 2017-05-30 17:25 | disposition home or self-care (01) ==
LOC: ER 13:34
PROVIDERS: Emergency Medicine
DX: R07.89 Other chest pain (principal); J93.83 Other pneumothorax; Z87.891 Personal history of nicotine dependence; J44.9 Chronic obstructive pulmonary disease, unspecified
CPT/HCPCS: Q9967